=== PATIENT | female | born 1950 | race Caucasian/White ===

== ENCOUNTER → 2017-01-24 | Outpatient (CLI) | payer MEDICARE ==
--- NOTE | 2017-01-24 23:02 | MR ---
EXAMINATION TYPE: MR angio head wo con DATE OF EXAM: 01/24/2017 COMPARISON: 05/05/2013 HISTORY: 67-year-old female Follow up for cyst previous MRI on PACS TECHNIQUE: High-resolution 3-D [id number] images focusing on the [place] were performed without contrast. FINDINGS: The vertebral arteries are codominant. 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 Internal carotid arteries as well as the remainder of the anterior circulation appears patent. No sig nificant stenosis, arterial occlusion, or aneurysmal change is identified. There is slight medial displacement of the left M1 bifurcation secondary to the large arachnoid cyst in the anterior left middle cranial fossa. Patent bilateral posterior communicating arteries are note d. IMPRESSION: 1. No significant stenosis, arterial occlusion, or aneurysmal change seen. 2. 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 3. Arachnoid cyst lying in the anterior left middle cranial fossa.
--- NOTE | 2017-01-24 23:12 | MR ---
EXAMINATION TYPE: MR brain wo/w con DATE OF EXAM: 01/24/2017 COMPARISON: 04/30/2013 HISTORY: 67-year-old female with follow-up for arachnoid cyst TECHNIQUE: Multiplanar, multisequence images of the brain and brainstem were acquired before and aft er administration of 7.5 mL IV Gadavist. Diffusion weighted imaging is performed. FINDINGS: Redemonstrated cystic space with a CSF signal intensity along the anterior left middle cranial fossa measuring 2.5 cm wide by 4.6 cm AP by 5.6 cm craniocaudal. This is unchanged from prior exam. Again, this has mild mass effect onto the underlying insular lobe, mass effect onto the anterior hannah in of the left temporal lobe, and onto the inferior left frontal lobe. However, there is no midline s hift or herniation. No evidence for acute infarction, hemorrhage, effacement of basal cisterns, or extra-axial fluid amarilys ection. The ventricles and sulci are age-appropriate. Major intracranial flow voids are intact. T2/FLAIR weighted sequences show minimal scattered burden of bright white matter change in the subcor tical and deep white matter of both cerebral hemispheres numbering approximately 5 on each side. Midline structures demonstrate normal morphology. The craniocervical junction is normal. Post contrast images demonstrate no evidence of pathologic enhancement. Dural venous sinuses are pat ent. There is near complete opacification of the right sphenoid sinus with a moderate mucosal thickening a nd suggestion of an air-fluid level may be present within. Globes are intact. IMPRESSION: 1. No acute intracranial abnormality seen. 2. Stable large 5.6 cm arachnoid cyst in the anterior left middle cranial fossa. Mild mass effect ont o the adjacent brain parenchyma is unchanged. No midline shift or herniation. 3. Chronic T2 bright white matter changes with minimal overall burden. 4. Correlate for possible acute on chronic right sphenoid sinusitis.
== END | disposition home or self-care (01) ==
LOC: RADMRIMAIN 19:28
PROVIDERS: ATTEND Psychiatry & Neurology Neurology
DX: G93.0 Cerebral cysts (principal); R90.82 White matter disease, unspecified
CPT/HCPCS: 70544; 70553; A9581

== ENCOUNTER → 2018-02-19 | Outpatient (CLI) | payer MEDICARE, OTHER ==
--- NOTE | 2018-02-19 17:20 | XR ---
Thoracic spine HISTORY: Chronic mid back pain 3 views of the thoracic spine correlated to prior exam 07/14/2011 Slight spinal curvature is again noted. Thoracic vertebral bodies show stable height, alignment, and bone mineralization. No evident paraspinal mass. Disc spaces are mildly reduced in the midthoracic le gurdeep of the lower thoracic level. There is mild multilevel spondylosis. IMPRESSION: Essentially stable exam. Thoracic spondylosis, degenerative disc disease, MRI may be of b enefit
--- NOTE | 2018-02-19 17:21 | XR ---
Lumbar spine HISTORY: Chronic low back pain 3 views of the lumbar spine There is a levoscoliosis centered at L2. Multilevel spondylosis is present. There is loss of disc hei ght and intervertebral levels. Lumbar vertebral bodies show preserved height and alignment. Bone mine ralization is reduced. Vacuum phenomenon present at L5-S1. Sclerosis present in the posterior element s of the lower lumbar spine. Atherosclerotic change present in the aortoiliac distribution. IMPRESSION: Degenerative disc disease, facet arthropathy, scoliosis. Osteopenia.
--- NOTE | 2018-02-19 17:23 | XR ---
Cervical spine HISTORY: Chronic neck pain 5 views of the cervical spine There is multilevel facet arthropathy. Suspect some atherosclerotic change of the carotid artery dist ribution. There is no significant foraminal encroachment on oblique images on the right, on the left at C5-6 and C7-T1 there is some foraminal encroachment. Cervical vertebral bodies show preserved heig ht, alignment, bone mineralization. Loss of disc height present at C5-6, there is multilevel spondylo sis. Odontoid view is limited. Prevertebral soft tissues are normal. IMPRESSION: Degenerative disc disease, facet arthropathy. No foraminal encroachment as described. Cer vical MRI may be of benefit.
== END | disposition home or self-care (01) ==
LOC: RADXRMAIN 12:41
PROVIDERS: ATTEND Internal Medicine
DX: M51.35 Other intervertebral disc degeneration, thoracolumbar region (principal); M47.814 Spondylosis without myelopathy or radiculopathy, thoracic region; M46.86 Other specified inflammatory spondylopathies, lumbar region; M41.86 Other forms of scoliosis, lumbar region; M85.88 Other specified disorders of bone density and structure, other site; M50.30 Other cervical disc degeneration, unspecified cervical region; M46.82 Other specified inflammatory spondylopathies, cervical region
CPT/HCPCS: 72050; 72070; 72100

== ENCOUNTER 2018-04-20 22:22 | Emergency (ER) | payer MEDICARE, OTHER ==
[2018-04-20 22:30] VITALS: RESP 18
[2018-04-20 23:19] LABS: Basophils % (A) 0 %; Eosinophils # (A) 0.1 k/uL (0-0.7); Eosinophils % (A) 1 %; HCT 47.7 % (34.0-46.0); HGB 14.9 gm/dL (11.4-16.0); Lymphocytes # (A) 2.7 k/uL (1.0-4.8); Lymphocytes % (A) 27 %; MCH 28.4 pg (25.0-35.0); MCHC 31.3 g/dL (31.0-37.0); MCV 90.8 fL (80.0-100.0); Mean Platelet Volume 10.1; Monocytes # (A) 0.6 k/uL (0-1.0); Monocytes % (A) 6 %; Neutrophils # (A) 6.3 k/uL (1.3-7.7); Neutrophils % (A) 64 %; Platelet Count 188 k/uL (150-450); RBC 5.25 m/uL (3.80-5.40); RDW 13.1 % (11.5-15.5); WBC 9.8 k/uL (3.8-10.6)
[2018-04-20 23:28] LABS: ALT 23 U/L (9-52); AST 18 U/L (14-36); Albumin 3.6 g/dL (3.5-5.0); Alkaline Phosphatase 49 U/L (38-126); Anion Gap 5 mmol/L; Blood Urea Nitrogen 24 mg/dL (7-17); Calcium 9.1 mg/dL (8.4-10.2); Carbon Dioxide 28 mmol/L (22-30); Chloride 105 mmol/L (98-107); Glucose 116 mg/dL (74-99); Magnesium 2.1 mg/dL (1.6-2.3); Sodium 138 mmol/L (137-145); Total Bilirubin 0.5 mg/dL (0.2-1.3); Total Protein 6.1 g/dL (6.3-8.2)
--- NOTE | 2018-04-20 23:35 | XR ---
EXAMINATION TYPE: XR chest 2V DATE OF EXAM: 04/20/2018 COMPARISON: 07/25/2012 HISTORY: Chest pain TECHNIQUE: Frontal and lateral views of the chest are obtained. FINDINGS: Heart and mediastinum are normal. Lungs are clear. Diaphragm is normal. There are chest le ads. Bony thorax is intact. IMPRESSION: Normal chest. No change.
[2018-04-20 23:47] LABS: Creatine Kinase 25 U/L (30-135)
[2018-04-20 23:59] LABS: Creatine Kinase MB 0.4 ng/mL (0.0-2.4); Troponin I <0.012 ng/mL (0.000-0.034)
[2018-04-21 00:04] LABS: Prothrombin Time 10.5 sec (9.0-12.0)
[2018-04-21 00:12] LABS: Partial Thromboplastin Time 19.2 sec (22.0-30.0)
--- NOTE | 2018-04-21 01:17 | XR ---
EXAMINATION TYPE: XR foot complete RT DATE OF EXAM: 04/21/2018 COMPARISON: NONE HISTORY: Foot pain TECHNIQUE: 3 views FINDINGS: Metatarsals are intact. I see no fracture nor dislocation. There are no erosions. IMPRESSION: Negative right foot exam.
--- NOTE | 2018-04-21 01:47 | ED ---
Chest Pain HPI - General Chief Complaint: Chest Pain Stated Complaint: Palpitations Time Seen by Provider: 04/20/18 22:53 Source: patient Mode of arrival: ambulatory Limitations: no limitations - History of Present Illness Initial Comments: This patient is a 68-year-old woman who presents to be evaluated mainly for palpitations. She states that she has been feeling the occasional "flopping" in her heart as well, which is the chest pain referenced in the triage notes. She denies isis pain in the chest. She states that she was previously told she has PVCs, but she was experiencing a number of these and wanted to make sure nothing else was going on. She states the sensation lasts for just a couple of seconds. She has not had anginal symptoms, no dyspnea, diaphoresis, nausea or vomiting, syncope. When she has finished describing that she also describes having some pain located over the second metatarsal and was concerned that she may have injured her foot and does not recall that. She does not remember any specific trauma. MD Complaint: other Onset/Timin -: days(s) Onset: during rest Pain Location: substernal Pain Radiation: none Severity: mild Quality: other ("Flopping) Consistency: intermittent Improves With: nothing Worsens With: nothing Other Symptoms: palpitations Treatments Prior to Arrival: none - Related Data Home Medications Medication Instructions Recorded Confirmed Losartan [Cozaar] 50 mg PO DAILY 04/03/17 04/20/18 Pantoprazole Sodium [Protonix] 40 mg PO DAILY 04/03/17 04/20/18 Aspirin [Olivarez Aspirin EC] 81 mg PO DAILY 04/20/18 04/20/18 Citalopram Hydrobromide [CeleXA] 40 mg PO HS 04/20/18 04/20/18 Diclofenac Sodium [Voltaren] 25 mg PO BID 04/20/18 04/20/18 Famotidine [Pepcid] 40 mg PO HS 04/20/18 04/20/18 predniSONE [Deltasone] 20 mg PO DAILY 04/20/18 04/20/18 Allergies Allergy/AdvReac Type Severity Reaction Status Date / Time levofloxacin [From Levaquin] Allergy POSSIBLE Verified 04/20/18 23:08 RUPTURED TENDON LT ARM Review of Systems ROS Statement: Those systems with pertinent positive or pertinent negative responses have been documented in the HPI. ROS Other: All systems not noted in ROS Statement are negative. Constitutional: Denies: fever, chills, weakness Respiratory: Denies: cough, dyspnea Cardiovascular: Reports: as per HPI, palpitations. Denies: orthopnea, edema, syncope Gastrointestinal: Denies: abdominal pain, nausea, vomiting Genitourinary: Denies: dysuria Musculoskeletal: Denies: back pain Skin: Denies: rash Neurological: Denies: headache, weakness, numbness EKG Findings - EKG Comments: EKG Findings:: The underlying rhythm appears to be sinus with sinus arrhythmia the rate 70 bpm. Possible old inferior infarct - EKG Results: EKG: interpreted by MARCO ANTONIOD, sinus rhythm, normal axis, normal ST/T Past Medical History Past Medical History: GERD/Reflux, Hypertension Additional Past Medical History / Comment(s): Right venticular outflow tachycardia History of Any Multi-Drug Resistant Organisms: None Reported Past Surgical History: Adenoidectomy, Appendectomy, Section, Hysterectomy, Tonsillectomy, Tubal Ligation Additional Past Surgical History / Comment(s): LT ANKLE TENDON REPAIR. LT GANGLION CYST REMOVED X 2. SINUS SX X 2. COLONOSCOPY Past Anesthesia/Blood Transfusion Reactions: Postoperative Nausea & Vomiting ( PONV) Past Psychological History: Anxiety, Depression Smoking Status: Never smoker Past Alcohol Use History: None Reported Past Drug Use History: None Reported - Past Family History Mother Family Medical History: No Reported History General Exam Limitations: no limitations General appearance: alert, in no apparent distress Head exam: Present: atraumatic, normocephalic Eye exam: Present: normal appearance. Absent: scleral icterus, conjunctival injection ENT exam: Present: normal oropharynx Neck exam: Present: normal inspection Respiratory exam: Present: normal lung sounds bilaterally. Absent: respiratory distress, wheezes, rales, rhonchi, stridor Cardiovascular Exam: Present: regular rate, normal rhythm, normal heart sounds. Absent: systolic murmur, diastolic murmur, rubs, gallop GI/Abdominal exam: Present: soft. Absent: distended, tenderness, guarding, rebound, mass Extremities exam: Present: normal inspection, normal capillary refill. Absent: pedal edema, calf tenderness Back exam: Present: normal inspection. Absent: CVA tenderness (R), CVA tenderness (L) Neurological exam: Present: alert Skin exam: Present: warm, dry, intact, normal color. Absent: rash Course Vital Signs 04/20/18 04/21/18 22:26 02:20 Temperature 97.9 F 98.8 F Pulse Rate 79 72 Respiratory 18 18 Rate Blood Pressure 149/77 139/77 O2 Sat by Pulse 99 96 Oximetry Disposition Clinical Impression: Palpitations, Foot pain, right Disposition: HOME SELF-CARE Condition: Good Instructions: Heart Palpitations (DC) Is patient prescribed a controlled substance at d/c from ED?: No Referrals: Flynn Palomino MD [Primary Care Provider] - 1-2 days
[2018-04-21 02:22] VITALS: BP 139/77; PULSE 72; TEMP 98.8
== END 2018-04-21 02:31 | disposition home or self-care (01) ==
LOC: EC 22:22
DX: R00.2 Palpitations (principal); M79.671 Pain in right foot; R07.2 Precordial pain; K21.9 Gastro-esophageal reflux disease without esophagitis; I10 Essential (primary) hypertension; I47.2 Ventricular tachycardia; F41.9 Anxiety disorder, unspecified; F32.9 Major depressive disorder, single episode, unspecified; Z79.82 Long term (current) use of aspirin; Z79.1 Long term (current) use of non-steroidal anti-inflammatories (NSAID); Z79.52 Long term (current) use of systemic steroids; Z79.899 Other long term (current) drug therapy; Z88.1 Allergy status to other antibiotic agents
CPT/HCPCS: 36415; 71046; 80053; 82550; 82553; 83735; 83880; 84484; 85025; 85610; 85730; 99285

== ENCOUNTER → 2018-10-29 | Outpatient (CLI) | payer MEDICARE, OTHER ==
[2018-10-29 19:02] LABS: Magnesium 1.9 mg/dL (1.5-2.4)
== END | disposition home or self-care (01) ==
LOC: LABWHC1 12:31
PROVIDERS: ATTEND Psychiatry & Neurology Neurology
DX: G43.101 Migraine with aura, not intractable, with status migrainosus (principal); G93.0 Cerebral cysts; F32.9 Major depressive disorder, single episode, unspecified
CPT/HCPCS: 36415; 82306; 82310; 83735

== ENCOUNTER → 2020-01-01 | Outpatient (CLI) | payer MEDICARE, OTHER ==
[2020-01-01 21:19] LABS: Albumin 4.2 g/dL (3.80-4.90); Albumin/Globulin Ratio 2.63 (1.60-3.17); Bilirubin, Conjugated 0.2 mg/dL (0.20-0.40); Bilirubin,Unconjugated 0.6 mg/dL; Chol/HDL Ratio 2.82; Globulin 1.6 g/dL (1.6-3.3); Total Bilirubin 0.8 mg/dL (0.3-1.2); Total Protein 5.8 g/dL (6.2-8.2)
[2020-01-01 21:27] LABS: T4, Free (Free Thyroxine) 1.1 ng/dL (0.80-1.80)
== END | disposition home or self-care (01) ==
LOC: LABWHC1 10:27
PROVIDERS: ATTEND Internal Medicine
DX: E03.9 Hypothyroidism, unspecified (principal); R53.82 Chronic fatigue, unspecified; C78.5 Secondary malignant neoplasm of large intestine and rectum; E55.9 Vitamin D deficiency, unspecified
CPT/HCPCS: 36415; 80061; 80076; 82306; 84439; 84443; 84481

== ENCOUNTER 2020-01-18 16:37 | Emergency (ER) | payer MEDICARE, OTHER ==
--- NOTE | 2020-01-18 17:12 | ED ---
General Adult HPI - General Chief complaint: Dizziness Stated complaint: dizzy,nausea,head ache Time Seen by Provider: 01/18/20 16:57 Source: patient Mode of arrival: ambulatory Limitations: no limitations - History of Present Illness Initial comments: Patient presents the ED by private vehicle (patient states she drove here) complaining of feeling dizzy and nauseated ever since she hit her head (right rastafari) on a door frame 10 days ago. Patient states that her symptoms were improving until she had her neck manipulated by her chiropractor 4 days ago, and she states that her dizziness has been worse ever since then. Patient states that her dizziness is worse when turning her head from side to side. Patient also admits to having a right-sided headache, as well as mild right posterolateral neck pain. Patient denies LOC at the time of her head injury. Patient denies fever or chills, focal numbness/weakness/neuro deficit, visual changes, speech difficulty, back pain, extremity pain, chest pain, dyspnea, cough or cold symptoms, palpitations, syncope, abdominal pain, nausea/vomiting/diarrhea, bloody or melanotic stool, dysuria or urinary symptoms, or any other symptoms or complaints. - Related Data Home Medications Medication Instructions Recorded Confirmed Losartan [Cozaar] 50 mg PO DAILY 04/03/17 04/20/18 Pantoprazole Sodium [Protonix] 40 mg PO DAILY 04/03/17 04/20/18 Aspirin [Gaines Aspirin EC] 81 mg PO DAILY 04/20/18 04/20/18 Citalopram Hydrobromide [CeleXA] 40 mg PO HS 04/20/18 04/20/18 Diclofenac Sodium [Voltaren] 25 mg PO BID 04/20/18 04/20/18 Famotidine [Pepcid] 40 mg PO HS 04/20/18 04/20/18 predniSONE [Deltasone] 20 mg PO DAILY 04/20/18 04/20/18 Previous Rx's Medication Instructions Recorded Meclizine [Antivert] 25 mg PO TID PRN #12 tab 01/18/20 Ondansetron Odt [Zofran Odt] 4 mg PO Q8HR PRN #10 tab 01/18/20 Allergies Allergy/AdvReac Type Severity Reaction Status Date / Time levofloxacin [From Levaquin] Allergy POSSIBLE Verified 01/18/20 16:43 RUPTURED TENDON LT ARM Review of Systems ROS Statement: Those systems with pertinent positive or pertinent negative responses have been documented in the HPI. ROS Other: All systems not noted in ROS Statement are negative. Past Medical History Past Medical History: GERD/Reflux, Hypertension Additional Past Medical History / Comment(s): Right venticular outflow tachycardia, arachnoid cyst on temporal lobe, History of Any Multi-Drug Resistant Organisms: None Reported Past Surgical History: Adenoidectomy, Appendectomy, Section, Hy sterectomy, Tonsillectomy, Tubal Ligation Additional Past Surgical History / Comment(s): LT ANKLE TENDON REPAIR. LT GANGLION CYST REMOVED X 2. SINUS SX X 2. COLONOSCOPY Past Anesthesia/Blood Transfusion Reactions: Postoperative Nausea & Vomiting ( PONV) Past Psychological History: Anxiety, Depression Smoking Status: Never smoker Past Alcohol Use History: None Reported Past Drug Use History: None Reported - Past Family History Mother Family Medical History: No Reported History General Exam Limitations: no limitations General appearance: alert, in no apparent distress Head exam: Present: atraumatic, normocephalic Eye exam: Present: normal appearance, PERRL, EOMI ENT exam: Present: normal oropharynx, mucous membranes moist, TM's normal bilaterally Neck exam: Present: normal inspection, other (Trachea is in midline). Absent: tenderness Respiratory exam: Present: normal lung sounds bilaterally. Absent: respiratory distress, wheezes, rales, rhonchi Cardiovascular Exam: Present: regular rate, normal rhythm, normal heart sounds, other (Normal radial pulses bilaterally) GI/Abdominal exam: Present: soft. Absent: distended, tenderness, guarding Extremities exam: Present: full ROM. Absent: tenderness, pedal edema, calf tenderness Neurological exam: Present: alert, oriented X3, CN II-XII intact. Absent: motor sensory deficit Psychiatric exam: Present: normal affect, normal mood Skin exam: Present: warm, dry, intact, normal color Course Vital Signs 01/18/20 01/18/20 01/18/20 16:39 17:37 18:44 Temperature 98.3 F Pulse Rate 78 77 77 Respiratory 18 16 16 Rate Blood Pressure 153/77 136/78 130/67 O2 Sat by Pulse 95 100 98 Oximetry - Reevaluation(s) Reevaluation #1: 01/18/20 19:07 Patient remains alert and breathing comfortably with a normal room air oxygen saturation. Patient continues to have a normal neurological exam. Patient states that her dizziness and nausea have improved with ED treatment. Patient denies development of any new symptoms while in the ED. Patient is aware of her test results, and she feels comfortable going home at this time. Patient was counseled about head injuries and dizziness/vertigo. Patient was clearly explained return and follow-up instructions. Patient was instructed to follow up closely with her primary care provider. Patient feels comfortable with this plan. EKG Findings - EKG Comments: EKG Findings:: Normal sinus rhythm, ventricular rate of 70 bpm, normal OR and QRS intervals, normal QT interval, normal axis, no ST or T-wave abnormality Medical Decision Making - Medical Decision Making Patient's EKG, labs and imaging studies are all fairly unremarkable. Patient has no evidence of intracranial injury or cervical vascular dissection. I suspect that the patient's symptoms are likely secondary to head injury and/or peripheral vertigo. Patient's symptoms improved in the ED with Zofran and meclizine. Will discharge patient home with prescriptions for both. - Lab Data Result diagrams: 01/18/20 17:31 01/18/20 17:31 Lab Results 01/18/20 01/18/20 01/18/20 Range/Units 17:31 17:31 17:31 WBC 5.8 (3.8-10.6) k/uL RBC 4.94 (3.80-5.40) m/uL Hgb 15.4 (11.4-16.0) gm/dL Hct 44.8 (34.0-46.0) % MCV 90.8 (80.0-100.0) fL MCH 31.2 (25.0-35.0) pg MCHC 34.4 (31.0-37.0) g/dL RDW 12.3 (11.5-15.5) % Plt Count 148 L (150-450) k/uL Neutrophils % 56 % Lymphocytes % 34 % Monocytes % 6 % Eosinophils % 2 % Basophils % 1 % Neutrophils # 3.3 (1.3-7.7) k/uL Lymphocytes # 2.0 (1.0-4.8) k/uL Monocytes # 0.3 (0-1.0) k/uL Eosinophils # 0.1 (0-0.7) k/uL Basophils # 0.1 (0-0.2) k/uL PT 9.9 (9.0-12.0) sec INR 1.0 (<1.2) APTT 23.2 (22.0-30.0) sec Sodium 139 (137-145) mmol/L Potassium 4.4 (3.5-5.1) mmol/L Chloride 107 (98-107) mmol/L Carbon Dioxide 26 (22-30) mmol/L Anion Gap 6 mmol/L BUN 21 H (7-17) mg/dL Creatinine 0.90 (0.52-1.04) mg/dL Est GFR (CKD-EPI)AfAm 76 (>60 ml/min/1.73 sqM) Est GFR (CKD-EPI)NonAf 66 (>60 ml/min/1.73 sqM) Glucose 113 H (74-99) mg/dL Calcium 9.3 (8.4-10.2) mg/dL Total Bilirubin 0.4 (0.2-1.3) mg/dL AST 27 (14-36) U/L ALT 19 (4-34) U/L Alkaline Phosphatase 63 (38-126) U/L Troponin I (0.000-0.034) ng/mL Total Protein 6.4 (6.3-8.2) g/dL Albumin 4.1 (3.5-5.0) g/dL 01/18/20 Range/Units 17:31 WBC (3.8-10.6) k/uL RBC (3.80-5.40) m/uL Hgb (11.4-16.0) gm/dL Hct (34.0-46.0) % MCV (80.0-100.0) fL MCH (25.0-35.0) pg MCHC (31.0-37.0) g/dL RDW (11.5-15.5) % Plt Count (150-450) k/uL Neutrophils % % Lymphocytes % % Monocytes % % Eosinophils % % Basophils % % Neutrophils # (1.3-7.7) k/uL Lymphocytes # (1.0-4.8) k/uL Monocytes # (0-1.0) k/uL Eosinophils # (0-0.7) k/uL Basophils # (0-0.2) k/uL PT (9.0-12.0) sec INR (<1.2) APTT (22.0-30.0) sec Sodium (137-145) mmol/L Potassium (3.5-5.1) mmol/L Chloride (98-107) mmol/L Carbon Dioxide (22-30) mmol/L Anion Gap mmol/L BUN (7-17) mg/dL Creatinine (0.52-1.04) mg/dL Est GFR (CKD-EPI)AfAm (>60 ml/min/1.73 sqM) Est GFR (CKD-EPI)NonAf (>60 ml/min/1.73 sqM) Glucose (74-99) mg/dL Calcium (8.4-10.2) mg/dL Total Bilirubin (0.2-1.3) mg/dL AST (14-36) U/L ALT (4-34) U/L Alkaline Phosphatase (38-126) U/L Troponin I <0.012 (0.000-0.034) ng/mL Total Protein (6.3-8.2) g/dL Albumin (3.5-5.0) g/dL - Radiology Data Radiology results: report reviewed (Noncontrast CT head shows no acute intracranial abnormality; CT angiogram neck with IV contrast shows no evidence of stenosis or dissection) Disposition Clinical Impression: Head injury, Dizziness Disposition: HOME SELF-CARE Condition: Stable Instructions (If sedation given, give patient instructions): Vertigo (ED), Head Injury (ED), Dizziness (ED) Additional Instructions: Return to the ER immediately should you develop new or worsening pain, increased dizziness, numbness or weakness, a fever, shortness of breath, passing out, or new or worsening symptoms. Follow up closely with your primary care provider. Prescriptions: Meclizine [Antivert] 25 mg PO TID PRN #12 tab PRN Reason: Vertigo Ondansetron Odt [Zofran Odt] 4 mg PO Q8HR PRN #10 tab PRN Reason: Nausea Is patient prescribed a controlled substance at d/c from ED?: No Referrals: Flynn Palomino MD [Primary Care Provider] - 1-2 days Time of Disposition: 19:11
[2020-01-18] MEDS ORDERED: MECLIZINE 12.5 MG TAB PO STA (17:25)
[2020-01-18] MEDS ORDERED: ONDANSETRON 4 MG/2 ML VIAL IVP STA (17:25)
[2020-01-18] MEDS ORDERED: SODIUM CHLORIDE 0.9% 500 ML 500 ML IV STA (17:25)
[2020-01-18 17:53] LABS: Basophils # (A) 0.1 k/uL (0-0.2); Basophils % (A) 1 %; Eosinophils # (A) 0.1 k/uL (0-0.7); Eosinophils % (A) 2 %; HCT 44.8 % (34.0-46.0); HGB 15.4 gm/dL (11.4-16.0); Lymphocytes % (A) 34 %; MCH 31.2 pg (25.0-35.0); MCHC 34.4 g/dL (31.0-37.0); MCV 90.8 fL (80.0-100.0); Mean Platelet Volume 11.1; Monocytes # (A) 0.3 k/uL (0-1.0); Monocytes % (A) 6 %; Neutrophils # (A) 3.3 k/uL (1.3-7.7); Neutrophils % (A) 56 %; Platelet Count 148 k/uL (150-450); RBC 4.94 m/uL (3.80-5.40); RDW 12.3 % (11.5-15.5); WBC 5.8 k/uL (3.8-10.6)
[2020-01-18 17:55] LABS: Albumin 4.1 g/dL (3.5-5.0); Calcium 9.3 mg/dL (8.4-10.2); Potassium 4.4 mmol/L (3.5-5.1); Total Bilirubin 0.4 mg/dL (0.2-1.3); Total Protein 6.4 g/dL (6.3-8.2)
--- NOTE | 2020-01-18 18:11 | XR ---
EXAMINATION TYPE: XR chest 1V portable DATE OF EXAM: 01/18/2020 COMPARISON: 04/20/2018 HISTORY: Chest tightness dizziness TECHNIQUE: FINDINGS: Heart and mediastinum are normal. Lungs are clear. Diaphragm is normal. Bony thorax appears normal. IMPRESSION: Normal chest. No change.
[2020-01-18 18:13] LABS: Partial Thromboplastin Time 23.2 sec (22.0-30.0); Prothrombin Time 9.9 sec (9.0-12.0)
--- NOTE | 2020-01-18 18:56 | CT ---
EXAMINATION TYPE: CT brain wo con DATE OF EXAM: 01/18/2020 COMPARISON: 07/25/2012 HISTORY: headache and dizziness following chiropractic adjustment. CT DLP: 1131.6 mGycm Automated exposure control for dose reduction was used. There is enlargement of the left sylvian fissure. There is no mass effect nor midline shift. There is no sign of intracranial hemorrhage. Ventricles have normal size. The calvarium is intact. 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 No acute intracranial abnormality.
--- NOTE | 2020-01-18 19:02 | CT ---
EXAMINATION TYPE: CT angio neck DATE OF EXAM: 01/18/2020 COMPARISON: HISTORY: headache and dizziness following chiropractic adjustment. CT DLP: 348.5 mGycm Automated exposure control for dose reduction was used. CONTRAST: Performed with IV Contrast, patient injected with 65cc mL of Isovue 370. There is arterial flow in the common internal and external carotid arteries bilaterally. There is ant egrade flow in the vertebral arteries. There is minimal calcification at the right carotid artery bif urcation. I see no evidence of carotid artery stenosis. There is no evidence of carotid or vertebral artery aneurysm or dissection. There is normal branching pattern of the great vessels on the aortic a rch. There is arterial flow in both subclavian arteries. Cervical vertebra have normal alignment. Posterior elements are intact. Prevertebral soft tissues are intact. IMPRESSION: Negative CT angiogram of the neck. No evidence of stenosis or dissection.
[2020-01-18 19:23] VITALS: BP 146/76; PULSE 70; RESP 19; TEMP 98.1
== END 2020-01-18 19:22 | disposition home or self-care (01) ==
LOC: EC 16:37
DX: S09.90XA Unspecified injury of head, initial encounter (principal); R42 Dizziness and giddiness; I10 Essential (primary) hypertension; K21.9 Gastro-esophageal reflux disease without esophagitis; F41.9 Anxiety disorder, unspecified; F32.9 Major depressive disorder, single episode, unspecified; Z79.899 Other long term (current) drug therapy; Z79.82 Long term (current) use of aspirin; Z79.1 Long term (current) use of non-steroidal anti-inflammatories (NSAID); Z79.51 Long term (current) use of inhaled steroids; Z88.1 Allergy status to other antibiotic agents; W22.8XXA Striking against or struck by other objects, initial encounter
CPT/HCPCS: 99284 ×2; 96374 ×2; 36415; 93005; 80053; 84484; 85025; 85610; 85730; 71045; 70450; 70498; J2405; Q9967

== ENCOUNTER → 2020-11-15 | Outpatient (CLI) | payer MEDICARE, OTHER ==
[2020-11-15 08:52] VITALS: BP 152/90; PULSE 67; RESP 18; TEMP 98.2
--- NOTE | 2020-11-15 08:56 | P.PAINCN ---
History of Present Illness - Reason for Consult Consult date: 11/15/20 - History of Present Illness This is a 70-year-old patient who has been seeing Dr Cary since 2019 and has been getting RFA's from him at bilateral L4-5 and L5-S1, last was September 2019. Dr Hawk referred her to us. She had a caudal epidural injection on 11/02 and is having persistent pain. Pain is located in the left buttock and lateral thigh and also on the right side with a burning sensation. She also reports some muscle spasms. Pain is worse with prolonged walking and is worse at night and can wake her up at night. 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 As mentioned in the past she had received frequency ablations which gave her greater than 80% relief. She also had 2 caudal epidural steroid injections in the past, the most recent one with left lower extremity pain but not so much on the right side.In terms of Management she is on multiple conservative therapies including physical therapy, [place] home exercise program, as well as sees a chiropractor. Also notes some midthoracic back pain that she has had for some time. She noted that she had an x-ray of this in the past but was told there wasn't any pathology. Pain is in mid back with some radiation into the anterior chest wall described as sharp and stabbing as well. has not had any management or injections for this area of pain. Patient denies adverse drug effects from medications. Patient also denies new- onset weakness, bowel/bladder incontinence, or any other signs or symptoms of cauda equina syndrome. There are no signs of acute intoxication, and no indications of medication diversion or overuse. In addition to above, 13-point review of systems is also negative for chest pain, shortness of breath, changes in vision, changes in hearing, new onset weakness, abdominal pain, diarrhea, extreme fatigue, malaise, fever, skin changes, homicidal or suicidal ideation, or bowel or bladder incontinence. Physical exam: Vital Signs: Reviewed in EMR GENERAL: Well appearing, in no acute distress PSYCH: Mood and affect is appropriate. Awake, alert, and oriented SKIN: Skin color, texture, turgor normal, no rashes or lesions HEENT: Normocephalic, atraumatic. EOM intact CV: No pedal edema RESP: Respirations are unlabored, no audible wheezing GI: Abdomen non-distended MUSCULOSKELETAL: Bilateral upper and lower extremity strength is normal and symmetric. No atrophy or tone abnormalities are noted. Lumbar spine: Straight leg raising in the sitting position is negative for radicular pain. pain to palpation over the lumbar spine and paraspinous muscles. positive for pain with facet loading and back extension/rotation. Decreased flexion due to pain Buttocks: pain to palpation over the PSIS, Corey test is positive on the right side Extremities: Peripheral joint ROM is full and pain free without obvious instability or laxity in all four extremities. No edema or skin discolorations noted. Gait: Gait is normal NEUR: Bilateral upper and lower extremity coordination and muscle stretch reflexes are physiologic and symmetric. Negative clonus. No loss of sensation is noted. Cranial nerves are grossly intact. Imaging: MRI 08/2019 There is significant facet arthropathy noted at the L4-L5 level with moderate narrowing of the thecal sac and moderate right and mild to moderate left foraminal stenosis. At L5-S1 there is a broad-based degenerative disc protrusion extending in the neural foramen with moderate posterior facet arthropathy is also bilateral lateral recess stenosis with [id number] spinal canal stenosis, and moderate to severe bilateral foraminal stenosis. Assessment: 1. Lumbar spondylosis without myelopathy 2. Sacroilitis Plan: 1. Explanation: Diagnoses, prognoses, and multiple treatment options including but not limited to physical therapy, interventional therapies, medication management and surgery were discussed with the patient and all questions were answered to the patient's satisfaction. 2. Investigations: Considerthoracic MRI in the future 3. Counseling: The patient was counseled for 3 minutes on SBODY MASS INDEX, EXERCISE. Specifically, the patient was instructed regarding the importance of weight control, and exercise in the context of both chronic pain and overall health. 4. Procedures: Bilateral L4-5 and L5-S1 RFA. If patient has persistent pain she may benefit from SIJ injection in the future as well. 5. Consultations: none 6. Medications: none 7. Disposition: for above procedure I spent 50 minutes on patient care today. The time was used to review medical records including relevant urine studies and prescription history (MAPs), review of the available imaging, evaluation and examination the patient, coordination of care at the medical staff and if applicable referring physicians, as well as creation of the medical record. Past Medical History Past Medical History: GERD/Reflux, Hypertension, Musculoskeletal Disorder, Thyroid Disorder Additional Past Medical History / Comment(s): hx. PVC's, doens't need to take BP med anymore, arachnoid cyst on temporal lobe-neuro monitors, saw PCP today, some mild GE symptoms-has zofran for prn, PCP didn't think was covid related History of Any Multi-Drug Resistant Organisms: None Reported Past Surgical History: Adenoidectomy, Appendectomy, Section, Hysterectomy, Tonsillectomy, Tubal Ligation Additional Past Surgical History / Comment(s): LT ANKLE TENDON REPAIR. LT HAND GANGLION CYST REMOVED X 2. SINUS SX X 2. COLONOSCOPY, epidural pain procedures-most recent 11-02-20 Past Anesthesia/Blood Transfusion Reactions: Postoperative Nausea & Vomiting (PONV) Smoking Status: Never smoker - Past Family History Mother Family Medical History: No Reported History Medications and Allergies Home Medications Medication Instructions Recorded Confirmed Type Pantoprazole Sodium [Protonix] 40 mg PO DAILY 04/03/17 11/09/20 History Aspirin [[place] Aspirin EC] 81 mg PO DAILY 04/20/18 11/09/20 History Ondansetron Odt [Zofran Odt] 4 mg PO Q8HR PRN #10 tab 01/18/20 11/09/20 Rx Dicyclomine [Bentyl] 10 mg PO TID PRN 11/09/20 11/09/20 History Escitalopram [Lexapro] 20 mg PO DAILY 11/09/20 11/09/20 History Levothyroxine Sodium [Synthroid] 25 mcg PO DAILY 11/09/20 11/09/20 History Meloxicam [Mobic] 7.5 mg PO BID PRN 11/09/20 11/09/20 History Allergies Allergy/AdvReac Type Severity Reaction Status Date / Time adhesive tape AdvReac skin Verified 11/09/20 11:19 blisters if left on too long levofloxacin [From Levaquin] AdvReac POSSIBLE Verified 11/09/20 11:19 RUPTURED TENDON LT ARM PQRS Measure Charge Sheet PQRS Narrative: Smoking Status Never smoker Pain Intensity [Lower Back] 3 Scale Used Numeric (1 - 10) Hx Alcohol Use (MH) No Home Medications: Ambulatory Orders Pantoprazole Sodium [Protonix] 40 mg PO DAILY 04/03/17 Aspirin [[place] Aspirin EC] 81 mg PO DAILY 04/20/18 Ondansetron Odt [Zofran Odt] 4 mg PO Q8HR PRN #10 tab 01/18/20 Dicyclomine [Bentyl] 10 mg PO TID PRN 11/09/20 Escitalopram [Lexapro] 20 mg PO DAILY 11/09/20 Levothyroxine Sodium [Synthroid] 25 mcg PO DAILY 11/09/20 Meloxicam [Mobic] 7.5 mg PO BID PRN 11/09/20
== END ==
LOC: PNWHC3 08:00
PROVIDERS: ATTEND Anesthesiology
DX: M47.816 Spondylosis without myelopathy or radiculopathy, lumbar region (principal); M46.1 Sacroiliitis, not elsewhere classified; I10 Essential (primary) hypertension; K21.9 Gastro-esophageal reflux disease without esophagitis; Z88.1 Allergy status to other antibiotic agents; Z91.048 Other nonmedicinal substance allergy status
CPT/HCPCS: 99211

== ENCOUNTER 2020-12-24 06:57 | Day surgery (SDC) | payer MEDICARE, OTHER ==
[2020-12-22 10:10] VITALS: BMI 30.2
[~2020-12-24 06:57] MED LIST: LACTATED RINGERS 1,000 ML IV SCH
[2020-12-24 07:21] VITALS: TEMP 97.7
[2020-12-24] MEDS ORDERED: fentaNYL (PF) 50 MCG/ML 2 ML AMP ONE (07:52)
[2020-12-24] MEDS ORDERED: ROPIVACAINE 5MG/ML 20ML VIAL ONE (07:52)
[2020-12-24] MEDS ORDERED: methylPREDNISolone ACETATE 40 MG/ML 1 ML VIAL ONE (07:52)
[2020-12-24] MEDS ORDERED: MIDAZOLAM 2 MG/2 ML VIAL ONE (07:52)
--- NOTE | 2020-12-24 08:19 | P.PCN ---
Date of Procedure: 12/24/20 Procedure(s) Performed: PREOPERATIVE DIAGNOSIS: 1-Lumbar Spondylosis with Facet Arthropathy without myelopathy. 2-Sacroiliitis. POSTOPERATIVE DIAGNOSIS: 1- Lumbar Spondylosis with Facet Arthropathy without myelopathy. 2- Sacroilitis. PROCEDURES : Bilateral Radiofrequency thermocoagulation, L3 , L4 , and L5 medial branch, with fluoroscopic guidance (fluoroscopy images available in the radiology department) ( to denervate the facet joint at Bilateral L4-5 ,and L5-S1 levels ). ANESTHESIA: monitered anesthesia care, as per anesthesia department . EBL: Minimal PROCEDURE INDICATION: The patient with low back pain secondary to lumbar facet arthropathy who had more than 50% relief of her pain with previous diagnostic lumbar medial branch block with bupivacaine. PROCEDURE DESCRIPTION / TECHNIQUE: The patient was seen and identified in the preoperative area. Risks, benefits, complications, including but not limited to risk of infection ,bleeding , allergic reactions to the medications and no complete pain releife , and alternatives were discussed with the patient, the patient agreed to proceed with the procedure and signed the consent. IV was started. Vital signs remained stable throughout the procedure. Patient was taken to the OR and time out was completed. The patient was placed in the prone position on the procedure table. The lumber area was prepped and draped in the usual sterile fashion. . Vital signs were closely monitored during the procedure .IV sedation was used during the procedure to decrease patients anxiety. Using AP and then oblique fluoroscopy, the ``eye of the Bernardo dog corresponding to the connection between the superior and transverse articular processes of right L3, L4, and L5 were identified, marked, and localized with 1% lidocaine. Subsequently, a 18 -nd radiofrequency cannula with a 10- mm active tip was advanced guided by fluoroscopy to each of the``eyes of the Bernardo dog at right L3, L4, and L5. Each site then underwent sensory testing at 50 Hz and 0 to 1 volt and motor testing at 2.5 Hz and 0 to 3 volt with local stimulation, but no radicular symptoms down the legs. Thereafter each sites underwent radiofrequency thermocoagulation at 80 degrees celsius for 90 seconds after injecting 0.5 ml of PF Ropivacaine 1ml, then after the thermocoagulation done , 1 ml of the block solution containing Depo-Medrol 20 mg and 3 ml of Ropivacaine 0.5% was injected at the right L3 , L4 , and L5 , levels after negative aspiration of CSF and blood and with no paresthesias. Cannulas were retracted while injecting lidocaine 1% until the needle is out. The same procedure was repeated at the level of Left L3, L4, and L5 levels. At the end of the procedure, the skin was cleansed and bandages were applied. COMPLICATIONS: No acute complications. DISPOSITION / PLANS: The patient was placed in a supine position and transferred to the recovery area in a stable condition for observation and was discharged from the recovery room after meeting discharge criteria. Home discharge instructions given to the patient by the staff. The patient was reexamined prior to discharge. The patient will schedule a follow up in the clinic in 2-4 weeks.
[2020-12-24] MEDS ORDERED: IV FLUID CONTINUATION 1,000 ML IV ONE (08:21)
[2020-12-24 08:39] VITALS: RESP 16
--- NOTE | 2020-12-24 08:47 | FL ---
Fluoroscopy HISTORY: Pain 11 seconds fluoroscopy time supplied to the referring clinician. 6 intraoperative C-arm images docum ent the procedure. See dictated report from anesthesia.
[2020-12-24 08:58] VITALS: BP 148/87; PULSE 80
== END 2020-12-24 09:08 | disposition home or self-care (01) ==
LOC: ORPAIN 06:57
PROVIDERS: ATTEND Specialist
DX: M47.816 Spondylosis without myelopathy or radiculopathy, lumbar region (principal); M46.1 Sacroiliitis, not elsewhere classified
CPT/HCPCS: 64635; 64636; J2250; J1030; J3010; J2795

== ENCOUNTER → 2021-01-24 | Outpatient (CLI) | payer MEDICARE, OTHER ==
[2021-01-24 09:52] VITALS: BP 135/71; PULSE 84; RESP 18; TEMP 98.6
--- NOTE | 2021-01-24 10:24 | P.PN ---
Subjective Progress Note Date: 01/24/21 This is a follow-up visit for this 71 years old female with a chronic history of severe low back pain, she is diagnosed with lumbar spinal stenosis, lumbar degenerative disc disease, and lumbar spondylosis with lumbar facet arthropathy without myelopathy, sacroiliitis, Last month we have done RFA of the medial branch lumbar area, she reported that her low back pain improved significantly she continued to have some buttock pain bilaterally, she is increased with changing position, she denies any motor or sensory deficit she denies any numbness or tingling sensation, no change in bowel movement or urination, she continued to use Mobic 7.5 mg twice a day when necessary and she already done physical therapy and she continues to do home exercise Objective - Vital Signs Vital signs: Vital Signs Temp 98.6 F 01/24/21 09:45 Pulse 84 01/24/21 09:45 Resp 18 01/24/21 09:45 BP 135/71 01/24/21 09:45 Pulse Ox 97 01/24/21 09:45 - Exam Physical Examinations : -Constitutiona : Cooperative , not in acute distress . -HEENT : nech : supple , no Lymphadenopathy , normal thyroid size . : eyes : no ptosis , no icterus, no photophobia . - neurologic : Cranial nerve II to XII intact , no focal neurological deffecit . -psychatric : alert , oriented X 3 , appropriate affect , intact judgment and insight . -Lymphatic : no Lymphadenopathy . - musculoskeltal : Lumber spine moter stegnth lower extremities ,thigh and legs 5/5 Right side , 5/5 Left side deep tendon reflexes : normal Knee Jerk , normal ankle Jerk lumber facet Loading Test = negative bilaterally Range of motion of the lumbar spine Flexion 30 degrees, extension 10 degrees strait leg raising test = positive at 30 degree Right side Fabere test= positive Right , tenderness over the Sacroiliac joint on the Right , and Left sides Head joints for range of motion bilaterally no restriction no pain with hip movement MRI of the lumbar spine= lumbar spinal stenosis lumbar foraminal stenosis lumbar degenerative disc disease and lumbar facet arthropathy Assessment and Plan Plan: Assessment and plan=1-lumbar spinal stenosis. 2-Lumbar degenerative disc disease. 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 Low back pain and improved after RFA medial b ranch lumbar area. Currently patient complaining of severe bilateral buttock pain, she will be good candidate to have lumbar epidural steroid injection at L5-S1 Time with Patient: Less than 30
== END ==
LOC: PNWHC3 09:37
PROVIDERS: ATTEND Specialist
DX: M48.061 Spinal stenosis, lumbar region without neurogenic claudication (principal); M51.36 Other intervertebral disc degeneration, lumbar region; M47.816 Spondylosis without myelopathy or radiculopathy, lumbar region; Z98.890 Other specified postprocedural states; Z91.09 Other allergy status, other than to drugs and biological substances; Z91.048 Other nonmedicinal substance allergy status; Z88.1 Allergy status to other antibiotic agents
CPT/HCPCS: 99211

== ENCOUNTER 2021-02-04 09:47 | Emergency (ER) | payer MEDICARE, OTHER ==
[2021-02-04 10:05] VITALS: BP 158/82; PULSE 91; RESP 18; TEMP 98
[2021-02-04] MEDS ORDERED: KETOROLAC 15 MG/ML 1 ML VIAL IVP STA (10:25)
[2021-02-04] MEDS ORDERED: SODIUM CHLORIDE 0.9% 1,000 ML IV STA (10:25)
[2021-02-04 11:02] LABS: Basophils % (A) 0 %; Eosinophils # (A) 0.1 k/uL (0-0.7); Eosinophils % (A) 1 %; HGB 15.1 gm/dL (11.4-16.0); Lymphocytes # (A) 1.5 k/uL (1.0-4.8); Lymphocytes % (A) 17 %; MCH 29.6 pg (25.0-35.0); MCHC 32.9 g/dL (31.0-37.0); MCV 90.1 fL (80.0-100.0); Mean Platelet Volume 11.4; Monocytes # (A) 0.5 k/uL (0-1.0); Monocytes % (A) 5 %; Neutrophils # (A) 6.7 k/uL (1.3-7.7); Neutrophils % (A) 75 %; Platelet Count 150 k/uL (150-450); RDW 12.4 % (11.5-15.5); WBC 8.9 k/uL (3.8-10.6)
--- NOTE | 2021-02-04 11:15 | ED ---
Abdominal Pain HPI - General Chief Complaint: Abdominal Pain Stated Complaint: abd pain Time Seen by Provider: 02/04/21 10:06 Source: patient, RN notes reviewed Mode of arrival: ambulatory Limitations: no limitations - History of Present Illness Initial Comments: 71-year-old female presents emergency Department chief complaint left-sided abdominal pain. Patient states started yesterday afternoon. Patient has left lower quadrant pain she does have history of diverticulosis, no history of diverticulitis. Patient has no nausea no vomiting no severe diarrhea constipation. Patient states she had no prior bowel infections denies dysuria currently but did have some symptoms a few days ago. Patient had hysterectomy, section, appendectomy. No reported fever - Related Data Home Medications Medication Instructions Recorded Confirmed Pantoprazole Sodium [Protonix] 40 mg PO DAILY 04/03/17 02/04/21 Aspirin [[place] Aspirin EC] 81 mg PO DAILY 04/20/18 02/04/21 Escitalopram [Lexapro] 20 mg PO HS 11/09/20 02/04/21 Meloxicam [Mobic] 7.5 mg PO DAILY 11/09/20 02/04/21 Multivitamins, Thera [Multivitamin 1 tab PO DAILY 12/22/20 02/04/21 (formulary)] Econazole 1% Cream [Spectazole] 1 applic TOPICAL DAILY PRN 02/04/21 02/04/21 Estrogens, Conjugated Cream 1 applicator VAGINAL DIRECTED 02/04/21 02/04/21 [Premarin Vaginal Cream] Fexofenadine HCl 180 mg PO DAILY PRN 02/04/21 02/04/21 Previous Rx's Medication Instructions Recorded Amoxicillin/Potassium Clav 1 tab PO Q12HR #20 tab 02/04/21 [Augmentin 875-125 Tablet] Allergies Allergy/AdvReac Type Severity Reaction Status Date / Time nickel Allergy Rash/Hives Verified 02/04/21 11:16 adhesive tape AdvReac skin Verified 02/04/21 11:16 blisters if left on too long levofloxacin [From Levaquin] AdvReac POSSIBLE Verified 02/04/21 11:16 RUPTURED TENDON LT ARM Review of Systems ROS Statement: Those systems with pertinent positive or pertinent negative responses have been documented in the HPI. ROS Other: All systems not noted in ROS Statement are negative. Past Medical History Past Medical History: GERD/Reflux, Hypertension, Musculoskeletal Disorder Additional Past Medical History / Comment(s): Hx PVC's; No Rx for HTN now, arachnoid cyst on temporal lobe-neuro Dr Powell monitors. Has chronic sinusitis, gets sores in nose - using po AB Rx currently. Chronic lower back pain, c/o bilat buttock/hip pain. History of Any Multi-Drug Resistant Organisms: None Reported Past Surgical History: Adenoidectomy, Appendectomy, Section, Hysterectomy, Tonsillectomy, Tubal Ligation Additional Past Surgical History / Comment(s): LT ANKLE TENDON REPAIR. LT HAND GANGLION CYST REMOVED X 2. SINUS SX X 2. COLONOSCOPY, epidural/Pain procedures Past Anesthesia/Blood Transfusion Reactions: Postoperative Nausea & Vomiting (PONV) Past Psychological History: Anxiety, Depression Smoking Status: Never smoker - Past Family History Mother Family Medical History: No Reported History General Exam Limitations: no limitations General appearance: alert, in no apparent distress Head exam: Present: atraumatic, normocephalic, normal inspection Respiratory exam: Present: normal lung sounds bilaterally. Absent: respiratory distress, wheezes, rales, rhonchi, stridor Cardiovascular Exam: Present: regular rate, normal rhythm, normal heart sounds. Absent: systolic murmur, diastolic murmur, rubs, gallop, clicks GI/Abdominal exam: Present: soft, tenderness (left lower quadrant), normal bowel sounds. Absent: distended, guarding, rebound, rigid Back exam: Absent: CVA tenderness (R), CVA tenderness (L) Neurological exam: Present: alert Skin exam: Present: warm, dry, intact, normal color. Absent: rash Course Vital Signs 02/04/21 10:02 Temperature 98 F Pulse Rate 91 Respiratory 18 Rate Blood Pressure 158/82 O2 Sat by Pulse 95 Oximetry Medical Decision Making - Medical Decision Making 71-year-old female presented for left lower quadrant pain. CT shows evidence of diverticulitis no abscesses no free air no perforation. Labs essentially unremarkable be discharged on oral antibiotics, clear liquid out. Return pa rameters were discussed. - Lab Data Result diagrams: 02/04/21 10:44 02/04/21 10:44 Lab Results 02/04/21 02/04/21 02/04/21 Range/Units 10:44 10:44 10:44 WBC 8.9 (3.8-10.6) k/uL RBC 5.10 (3.80-5.40) m/uL Hgb 15.1 (11.4-16.0) gm/dL Hct 46.0 (34.0-46.0) % MCV 90.1 (80.0-100.0) fL MCH 29.6 (25.0-35.0) pg MCHC 32.9 (31.0-37.0) g/dL RDW 12.4 (11.5-15.5) % Plt Count 150 (150-450) k/uL MPV 11.4 Neutrophils % 75 % Lymphocytes % 17 % Monocytes % 5 % Eosinophils % 1 % Basophils % 0 % Neutrophils # 6.7 (1.3-7.7) k/uL Lymphocytes # 1.5 (1.0-4.8) k/uL Monocytes # 0.5 (0-1.0) k/uL Eosinophils # 0.1 (0-0.7) k/uL Basophils # 0.0 (0-0.2) k/uL Sodium 138 (137-145) mmol/L Potassium 4.8 (3.5-5.1) mmol/L Chloride 106 (98-107) mmol/L Carbon Dioxide 25 (22-30) mmol/L Anion Gap 7 mmol/L BUN 16 (7-17) mg/dL Creatinine 0.64 (0.52-1.04) mg/dL Est GFR (CKD-EPI)AfAm >90 (>60 ml/min/1.73 sqM) Est GFR (CKD-EPI)NonAf >90 (>60 ml/min/1.73 sqM) Glucose 113 H (74-99) mg/dL Plasma Lactic Acid Rubio (0.7-2.0) mmol/L Calcium 9.5 (8.4-10.2) mg/dL Total Bilirubin 1.1 (0.2-1.3) mg/dL AST 32 (14-36) U/L ALT 17 (4-34) U/L Alkaline Phosphatase 57 (38-126) U/L Total Protein 6.9 (6.3-8.2) g/dL Albumin 4.1 (3.5-5.0) g/dL Lipase 115 (23-300) U/L Urine Color Yellow Urine Appearance Cloudy H (Clear) Urine pH 5.5 (5.0-8.0) Ur Specific [place] 1.020 (1.001-1.035) Urine Protein Negative (Negative) Urine Glucose (UA) Negative (Negative) Urine Ketones Negative (Negative) Urine Blood Negative (Negative) Urine Nitrite Negative (Negative) Urine Bilirubin Negative (Negative) Urine Urobilinogen <2.0 (<2.0) mg/dL Ur Leukocyte Esterase Small H (Negative) Urine RBC 1 (0-5) /hpf Urine WBC 5 (0-5) /hpf Ur Squamous Epith Cells 26 H (0-4) /hpf Urine Bacteria Rare H (None) /hpf Urine Mucus Few H (None) /hpf 02/04/21 Range/Units 10:44 WBC (3.8-10.6) k/uL RBC (3.80-5.40) m/uL Hgb (11.4-16.0) gm/dL Hct (34.0-46.0) % MCV (80.0-100.0) fL MCH (25.0-35.0) pg MCHC (31.0-37.0) g/dL RDW (11.5-15.5) % Plt Count (150-450) k/uL MPV Neutrophils % % Lymphocytes % % Monocytes % % Eosinophils % % Basophils % % Neutrophils # (1.3-7.7) k/uL Lymphocytes # (1.0-4.8) k/uL Monocytes # (0-1.0) k/uL Eosinophils # (0-0.7) k/uL Basophils # (0-0.2) k/uL Sodium (137-145) mmol/L Potassium (3.5-5.1) mmol/L Chloride (98-107) mmol/L Carbon Dioxide (22-30) mmol/L Anion Gap mmol/L BUN (7-17) mg/dL Creatinine (0.52-1.04) mg/dL Est GFR (CKD-EPI)AfAm (>60 ml/min/1.73 sqM) Est GFR (CKD-EPI)NonAf (>60 ml/min/1.73 sqM) Glucose (74-99) mg/dL Plasma Lactic Acid Rubio 0.8 (0.7-2.0) mmol/L Calcium (8.4-10.2) mg/dL Total Bilirubin (0.2-1.3) mg/dL AST (14-36) U/L ALT (4-34) U/L Alkaline Phosphatase (38-126) U/L Total Protein (6.3-8.2) g/dL Albumin (3.5-5.0) g/dL Lipase (23-300) U/L Urine Color Urine Appearance (Clear) Urine pH (5.0-8.0) Ur Specific [place] (1.001-1.035) Urine Protein (Negative) Urine Glucose (UA) (Negative) Urine Ketones (Negative) Urine Blood (Negative) Urine Nitrite (Negative) Urine Bilirubin (Negative) Urine Urobilinogen (<2.0) mg/dL Ur Leukocyte Esterase (Negative) Urine RBC (0-5) /hpf Urine WBC (0-5) /hpf Ur Squamous Epith Cells (0-4) /hpf Urine Bacteria (None) /hpf Urine Mucus (None) /hpf Disposition Clinical Impression: Diverticulitis Disposition: HOME SELF-CARE Condition: Stable Instructions (If sedation given, give patient instructions): Diverticulitis (ED), Diverticulitis Diet (ED) Additional Instructions: Please return to the Emergency Department if symptoms worsen or any other concerns. Prescriptions: Amoxicillin/Potassium Clav [Augmentin 875-125 Tablet] 1 tab PO Q12HR #20 tab Is patient prescribed a controlled substance at d/c from ED?: No Referrals: Flynn Palomino MD [Primary Care Provider] - 1-2 days Time of Disposition: 12:54
[2021-02-04 11:28] LABS: ALT 17 U/L (4-34); AST 32 U/L (14-36); African American GFR (CKD) >90 (>60 ml/min/1.73 sqM); Albumin 4.1 g/dL (3.5-5.0); Alkaline Phosphatase 57 U/L (38-126); Anion Gap 7 mmol/L; Blood Urea Nitrogen 16 mg/dL (7-17); Calcium 9.5 mg/dL (8.4-10.2); Carbon Dioxide 25 mmol/L (22-30); Chloride 106 mmol/L (98-107); Glucose 113 mg/dL (74-99); Lipase 115 U/L (23-300); Non-African American GFR(CKD) >90 (>60 ml/min/1.73 sqM); Sodium 138 mmol/L (137-145); Total Bilirubin 1.1 mg/dL (0.2-1.3); Total Protein 6.9 g/dL (6.3-8.2)
[2021-02-04 11:29] LABS: Potassium 4.8 mmol/L (3.5-5.1)
[2021-02-04 11:36] LABS: Appearance,Urine Cloudy (Clear); Bacteria,Urine Rare /hpf; Bilirubin,Urine Negative (Negative); Blood,Urine Negative (Negative); Color,Urine Yellow; Glucose,Urine (UA) Negative (Negative); Ketones,Urine Negative (Negative); Leukocyte Esterase,Urine Small (Negative); Mucus,Urine Few /hpf; Nitrite,Urine Negative (Negative); PH, Urine 5.5 (5.0-8.0); Protein,Urine Negative (Negative); RBC,Urine 1 /hpf (0-5); Squamous Epithelial Cell,Urine 26 /hpf (0-4); Urobilinogen,Urine <2.0 mg/dL (<2.0); WBC,Urine 5 /hpf (0-5)
--- NOTE | 2021-02-04 12:24 | CT ---
EXAMINATION TYPE: CT abdomen pelvis w con DATE OF EXAM: 02/04/2021 COMPARISON: None HISTORY: 71-year-old female LLQ abdominal pain TECHNIQUE: Contiguous axial scanning of the abdomen and pelvis following administration of 100 ml Iso mono 300 IV contrast. Delayed images through the kidneys and coronal/sagittal reconstructions perform ed. CT DLP: 946.6 mGycm Automated exposure control for dose reduction was used. FINDINGS: Heart normal size without pericardial effusion. Some stringy atelectasis lower lungs. No focal liver lesion or biliary ductal dilatation. Portal venous system is patent. Gallbladder, adrenal glands, right kidney, spleen, and pancreas appear within normal limits. 1.1 cm cortical cyst lower pole left kidney. Mild to moderate atelectatic calcifications abdominal aorta and iliac arteries. No aneurysm. There is some gastric fold thickening throughout the stomach. No dilated small bowel or free air. Appendix not clearly visualized. No secondary findings of acute appendicitis. Mild stool burden. Lower descending and proximal to mid sigmoid diverticulosis present. There is foca l mild to moderate wall thickening with moderate surrounding inflammatory fat stranding at the proxim al sigmoid. Trace tracking left adnexal free fluid. Bladder partially distended. Uterus surgically absent. Both ovaries are visualized. No pelvic lymphad enopathy seen. Bones: Moderate to advanced degenerative disc disease L5-S1. Mild elsewhere throughout the lumbar spi ne. Facet arthropathy mid to lower lumbar spine. IMPRESSION: 1. EXAM POSITIVE FOR ACUTE DIVERTICULITIS INVOLVING THE PROXIMAL SIGMOID COLON WITH MILD TO MODERATE INFLAMMATION. TRACE REACTIVE FREE FLUID WITHIN THE LEFT SIDE OF THE PELVIS. NO ABSCESS OR FREE AIR. 2. DIFFUSE GASTRIC FOLD THICKENING. CORRELATE FOR ANY SYMPTOMS OF A POTENTIAL GASTRITIS. DIRECT VISUA LIZATION IF INDICATED.
[2021-02-04] MEDS ORDERED: ACET/COD 300 MG/30 MG STARTER PACK 6 TAB BTL PO STA (12:54)
== END 2021-02-04 13:27 | disposition home or self-care (01) ==
LOC: EC 09:47
DX: K57.32 Diverticulitis of large intestine without perforation or abscess without bleeding (principal); K21.9 Gastro-esophageal reflux disease without esophagitis; I10 Essential (primary) hypertension; F41.9 Anxiety disorder, unspecified; F32.9 Major depressive disorder, single episode, unspecified; Z79.82 Long term (current) use of aspirin; Z88.1 Allergy status to other antibiotic agents; Z90.49 Acquired absence of other specified parts of digestive tract; Z90.89 Acquired absence of other organs; Z90.710 Acquired absence of both cervix and uterus; Z98.51 Tubal ligation status
CPT/HCPCS: 99284; 96374; 96361; 36415; 80053; 83605; 83690; 85025; 81001; 74177; J1885; Q9967

== ENCOUNTER 2021-03-10 07:02 | Day surgery (SDC) | payer MEDICARE ==
[2021-03-07 16:49] VITALS: BMI 30.2
[2021-03-10 07:32] VITALS: TEMP 98.2
[2021-03-10] MEDS ORDERED: LACTATED RINGERS 1,000 ML IV ONE (07:37)
[2021-03-10] MEDS ORDERED: MIDAZOLAM 2 MG/2 ML VIAL ONE (07:40)
[2021-03-10] MEDS ORDERED: IOPAMIDOL M200 10 ML VIAL ONE (07:40)
[2021-03-10] MEDS ORDERED: methylPREDNISolone ACETATE 40 MG/ML 1 ML VIAL ONE (07:40)
[2021-03-10] MEDS ORDERED: .fentaNYL (PF) 50 MCG/ML AMP ONE (07:40)
[2021-03-10] MEDS ORDERED: IV FLUID CONTINUATION 900 ML IV ONE (07:56)
--- NOTE | 2021-03-10 07:56 | P.PCN ---
Date of Procedure: 03/10/21 Description of Procedure: Procedure: 1. L5-S1 Epidural steroid injection under fluoroscopic guidance #1 out of 3, 2. Lumbar epidurogram PREOPERATIVE DIAGNOSIS: Lumbar degenerative disc disease, and Lumbar radiculopathy. POSTOPERATIVE DIAGNOSIS: Lumbar degenerative disc disease, and Lumbar radiculopathy. SURGEON: Misty Sanchez ANESTHESIA: Local with 1% lidocaine, and IV sedation : Versed 1 mg, and fentanyl 50 g EBL: None. Specimen removed: None Fluoroscopic image: saved to electronic medical records PROCEDURE INDICATION: The patient had history of Lumbar degenerative disc disease and Lumbar radiculopathy. Failed to conservative therapy. Presented for epidural steroid injection. PROCEDURE DESCRIPTION: The patient was seen and identified in the preoperative area. Risks, benefits, complications, and alternatives were discussed with the patient. The patient agreed to proceed with the procedure and signed the consent. IV was started, and vital signs were stable. Patient was taken to the procedure area, and time out was completed. The patient was placed in the prone position on procedure table and a pillow was placed under the abdomen to reduce lumbar lordosis. The lumbosacral area was prepped and draped in the usual sterile fashion. Critical pause was taken. Vital signs were closely monitored during the procedure. Using anterior-posterior fluoroscopy, the L5-S1 interlaminar space was identified, and skin and deeper tissues were localized with 1% lidocaine. Using anterior-posterior fluoroscopy, lateral fluoroscopy, and [id number] technique, a 20 gauge 3.5 Tuohy epidural needle entered the epidural space. After negative aspiration of CSF and blood with no paresthesias, 1 ml of [id number] contrast dye was injected and an excellent epidurogram was seen. Again after negative aspiration of CSF and blood with no paresthesias, 10 mL of block solution was injected into the epidural space. Block solution contained 40 mg of Depo-Medrol, and 9 mL of preservative-free normal saline. Needle was withdrawn intact, skin was cleansed, and bandages were applied. COMPLICATIONS: None. DISPOSITION / PLANS: The patient was placed in a supine position and transferred to the recovery area in a stable condition for observation. Patient was dis charged from the recovery room after meeting discharge criteria. Home discharge instructions given to the patient by the staff. The patient was reexamined prior to discharge. The patient will schedule a follow up in the clinic in 4 weeks.
[2021-03-10] MEDS ORDERED: LACTATED RINGERS 1,000 ML IV SCH (08:00)
[2021-03-10 08:13] VITALS: RESP 16
[2021-03-10 08:14] VITALS: BP 138/78; PULSE 71
--- NOTE | 2021-03-10 10:04 | FL ---
EXAMINATION TYPE: FL guided pain mgmt statistic DATE OF EXAM: 03/10/2021 HISTORY: Fluoroscopy time 4 seconds of fluoroscopy provided. IMPRESSION: 1. Fluoroscopy time.
== END 2021-03-10 08:28 | disposition home or self-care (01) ==
LOC: ORPAIN 07:02
DX: M51.16 Intervertebral disc disorders with radiculopathy, lumbar region (principal); M19.90 Unspecified osteoarthritis, unspecified site; K21.9 Gastro-esophageal reflux disease without esophagitis; Z79.899 Other long term (current) drug therapy
CPT/HCPCS: 62323; J2250; J1030; J3010; Q9966; 99152

== ENCOUNTER → 2021-04-06 | Outpatient (CLI) | payer MEDICARE ==
--- NOTE | 2021-04-06 09:12 | P.PN ---
Subjective Progress Note Date: 04/06/21 This is a follow-up visit for this 71 years old female with a chronic history of severe low back pain, she is diagnosed with lumbar spinal stenosis, lumbar degenerative disc disease, and lumbar spondylosis with lumbar facet arthropathy without myelopathy, sacroiliitis, we have done RFA of the medial branch lumbar area, later on we did Lumbar epidural steroid injections at L5-S1 ,she reporte that her pain improved significantly , she denies any motor or sensory deficit she denies any numbness or tingling sensation, no change in bowel movement or urination, she continued to use Mobic 7.5 mg twice a day when necessary and she already done physical therapy and she continues to do home exercise Physical Examinations : -Constitutiona : Cooperative , not in acute distress . -HEENT : nech : supple , no Lymphadenopathy , normal thyroid size . : eyes : no ptosis , no icterus, no photophobia . - neurologic : Cranial nerve II to XII intact , no focal neurological deffecit . -psychatric : alert , oriented X 3 , appropriate affect , intact judgment and insight . -Lymphatic : no Lymphadenopathy . - musculoskeltal : Lumber spine moter stegnth lower extremities ,thigh and legs 5/5 Right side , 5/5 Left side MRI of the lumbar spine= lumbar spinal stenosis lumbar foraminal stenosis lumbar degenerative disc disease and lumbar facet arthropathy Assessment and plan=1-lumbar spinal stenosis. 2-Lumbar degenerative disc disease. 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 Low back pain and improved after RFA medial branch lumbar area. And after lumbar epidural steroid injection x1 she will follow up in the pain clinic when necessary - PQRS measures = - Patient's medications are documented in the chart. -Tobacco use is negative and counseling.Given. -Patient's has not received pneumococcal vaccine. -Advanced care planning discussed, patient not eligible. -Opiate contract not signed. -Pain positive and follow-up visit/procedure is scheduled. -Patient's blood pressure measured [ 136/66 ] , and documented in the record ,and patient will follow up with the primary care. -Patient's weight was measured and body mass index [ 29.3 ] above the normal limits and counseling was done. and patient instructed to follow-up with the primary care physician. -Patient was not identified as an unhealthy alcohol user Time with Patient: Less than 30
[2021-04-06 09:14] VITALS: BP 136/66; PULSE 75; RESP 18; TEMP 98
== END ==
LOC: PNWHC3 08:38
PROVIDERS: ATTEND Specialist
DX: M48.061 Spinal stenosis, lumbar region without neurogenic claudication (principal); M51.36 Other intervertebral disc degeneration, lumbar region; M47.816 Spondylosis without myelopathy or radiculopathy, lumbar region; Z91.048 Other nonmedicinal substance allergy status; Z88.1 Allergy status to other antibiotic agents; Z88.8 Allergy status to other drugs, medicaments and biological substances
CPT/HCPCS: 99211

== ENCOUNTER → 2021-05-17 | Outpatient (CLI) | payer MEDICARE ==
--- NOTE | 2021-05-17 13:01 | FL ---
EXAMINATION TYPE: FL barium swallow DATE OF EXAM: 05/17/2021 CLINICAL HISTORY: Dysphasia. Food getting stuck causing hiccups for over one year mid to lower thorac ic level. TECHNIQUE: A double contrast esophagram is performed utilizing air and barium. A total of 23 second s of fluoroscopic time was utilized during procedure and 50 images obtained COMPARISON: None FINDINGS: The esophagus shows normal satisfactory and emptying into the stomach. No diverticulum is s een. No evidence of fixed hiatal hernia or stricture noted. Small sliding-type hiatal hernia noticed during prone drinking. No significant gastroesophageal reflux was seen during real time performance o f this study. IMPRESSION: No significant abnormality is seen to account for patient's symptoms.
== END | disposition home or self-care (01) ==
LOC: RADFLMAIN 10:58
PROVIDERS: ATTEND Internal Medicine
DX: R13.10 Dysphagia, unspecified (principal)
CPT/HCPCS: 74220

== ENCOUNTER → 2021-10-31 | Outpatient (CLI) | payer MEDICARE ==
[2021-10-31 14:00] VITALS: BP 144/71; PULSE 65; RESP 18; TEMP 98.2
--- NOTE | 2021-10-31 14:02 | P.PAINPG ---
PQRS Measure Charge Sheet Comment: A 71 yr old female with a history of severe and chronic headaches secondary to R occipital neuralgia presents today for evaluation. Pain level is currently at 5/10 in intensity, constant, localized in the base of the neck, R side, w radiation up the R scalp, sharp/ shooting in character. Pain is provoked by hyperextension and palpation on the base of the R side of the head. Pain is alleviated with medications (Mobic from Dr Kay, Tylenol OTC), ice, home exercise regimen, laying supine, repositioning and rest. Interventional pain procedures completed include BL RFA L3-L5, LESI L5-S1 Patient is currently on Tylenol OTC, Mobic. Patient denies any side effects of the medication(s), denies excessive drowsiness or sleepiness, denies suicidal ideation and reports that the current pain medication is helping to control the pain and improve activities of daily living. Patient denies any motor or sensory deficits. Patient denies any fever or night sweats, denies any change in the bowel movements or urination. Physical Examination: -Constitutional: Cooperative. Not in acute distress . - Neurologic: Cranial nerve II to XII intact. No focal neurological deficits. - Psychatric: Alert & oriented x 3. Matching mood & appropriate affect. Judgment and insight intact. - Musculoskeletal: Cervical spine: + R ELYSIA TTP Muscle bulk/ tone/ strength in the bilateral upper extremities normal Vertebral body tenderness to palpation over Spurling test positive Distraction test positive Facet loading test positive Thoracic spine Muscle bulk / tone/ strength in the bilateral paraspinal muscles normal Vertebral body tender to palpation over Facet loading test positive Lumbar spine: Motor bulk/ tone/ strength lower extremities , thigh and legs : 5/5 Deep tendon reflexes : Normal Knee Jerk. Normal Ankle Jerk . Vertebral body tenderness to palpation over Lumbar Facet Loading Test positive Straight Leg Raise: positive at 30 degrees right side/ left side Gaenslen's Test positive Sacral spine : Severe tenderness over the Sacroiliac joint: right side / left side Range of motion: Flexion of the lumbar spine <60 degrees Range of motion: Extension of the lumbar spine <20 degrees Gaenslen's Test positive Michele's Test positive Corey test: positive right side / left side Thigh Thrust Test Sacral Thrust Test Assessment and plan: Chronic Occipital Neuralgia Recommendation of R ELYSIA. May need a series of injections, up until RFA, for optimal pain relief. Risks, benefits of procedure discussed and pt verbali zed understanding. Admits to anticoagulant use and denies medical history of diabetes. Protocol for discontinuation/ continuation of medications serafin procedure discussed. All patient questions answered MAPS reviewed and it was appropriate. I have spent less than 30 minutes on patient care today. Dr Cope was available by phone for the evaluation of this patient. The time was used to review the medical records including relevant urine studies and Prescription history (MAPs), review of the available imaging, evaluation and examination of the patient, coordination of care with the medical staff and if applicable referring physicians, as well as creation of the medical record PQRS Narrative: Smoking Status Never smoker Hx Alcohol Use (MH) No Home Medications: Ambulatory Orders Pantoprazole Sodium [Protonix] 40 mg PO DAILY 04/03/17 Aspirin [[place] Aspirin EC] 81 mg PO DAILY 04/20/18 Escitalopram [Lexapro] 20 mg PO HS 11/09/20 Meloxicam [Mobic] 7.5 mg PO DAILY PRN 11/09/20 Econazole 1% Cream [Spectazole] 1 applic TOPICAL DAILY PRN 02/04/21 Estrogens, Conjugated Cream [Premarin Vaginal Cream] 1 applicator VAGINAL DIRECTED 02/04/21 Fexofenadine HCl 180 mg PO DAILY PRN 02/04/21 Cholecalciferol [Vitamin D3 (25 Mcg = 1000 Iu)] 50 mcg PO DAILY 03/07/21 Controlled Substance Measures - Controlled Substance Measures Is patient prescribed a controlled substance at discharge?: No
== END ==
LOC: PNWHC3 13:38
PROVIDERS: ATTEND Specialist
DX: M54.81 Occipital neuralgia (principal); G43.101 Migraine with aura, not intractable, with status migrainosus; Z91.09 Other allergy status, other than to drugs and biological substances; Z91.048 Other nonmedicinal substance allergy status; Z88.1 Allergy status to other antibiotic agents
CPT/HCPCS: 99211

== ENCOUNTER → 2022-02-23 | Outpatient (CLI) | payer MEDICARE ==
[2022-02-23 10:47] VITALS: BP 133/80; PULSE 78; RESP 18; TEMP 98.4
--- NOTE | 2022-02-23 14:23 | P.PAINPG ---
PQRS Measure Charge Sheet Comment: A 72 yr old female with a history of severe and chronic low back pain secondary to lumbar DDD and spondylosis with facet arthropathy without myelopathy presents today for evaluation s/p BL RFA L3-L5. Pt states she experienced 100% pain relief x 14 mo s/p procedure. Pain level is currently at 7/10 in intensity, constant, localized in the lower lumbar spine,cramping in character w shooting towards . Pain is provoked by repositioning. Pain is alleviated with PT in 2018, home exercise daily, chiropractic treatments Q3 wks, heat, ice, meds (Tylenol), reclining and rest. Interventional pain procedures completed include BL RFA L3-L5 (2020) Patient is currently on Tylenol Patient denies any side effects of the medication(s), denies excessive drowsiness or sleepiness, denies suicidal ideation and reports that the current pain medication is helping to control the pain and improve activities of daily living. Patient denies any motor or sensory deficits. Patient denies any fever or night sweats, denies any change in the bowel movements or urination. Physical Examination: -Constitutional: Cooperative. Not in acute distress . - Neurologic: Cranial nerve II to XII intact. No focal neurological deficits. - Psychatric: Alert & oriented x 3. Matching mood & appropriate affect. Judgment and insight intact. - Musculoskeletal: Cervical spine: Muscle bulk/ tone/ strength in the bilateral upper extremities normal Vertebral body tenderness to palpation over Spurling test positive Distraction test positive Facet loading test positive Thoracic spine Muscle bulk / tone/ strength in the bilateral paraspinal muscles normal Vertebral body tender to palpation over Facet loading test positive Lumbar spine: Motor bulk/ tone/ strength lower extremities , thigh and legs : 5/5 Deep tendon reflexes : Normal Knee Jerk. Normal Ankle Jerk . Vertebral body tenderness to palpation over Lumbar Facet Loading Test positive jump reflex over BL L4-L5, L5-S1 facets Straight Leg Raise: positive at 30 degrees right side/ left side Gaenslen's Test positive Sacral spine : Severe tenderness over the Sacroiliac joint: right side / left side Range of motion: Flexion of the lumbar spine <60 degrees Range of motion: Extension of the lumbar spine <20 degrees Gaenslen's Test positive Corey test: positive right side / left side Thigh Thrust Test Sacral Thrust Test Assessment and plan: Chronic low back pain secondary to lumbar degenerative disc disease, spondylosis with facet arthropathy without myelopathy Recommendation of BL RFA L4-L5, L5-S1. Pt exhibited sufficient and optimal pian relief w prior BL RFA L4-L5, L5- S1 procedure. Risks, benefits of procedure discussed and pt verbalized understanding. Admits to anticoagulant use or medical history of diabetes. Protocol for discontinuation/ continuation of medications serafin procedure discussed. All patient questions answered I have spent less than 30 minutes on patient care today. Dr Cope was available by phone for the evaluation of this patient. The time was used to review the medical records including relevant urine studies and Prescription history (MAPs), review of the available imaging, evaluation and examination of the patient, coordination of care with the medical staff and if applicable referring physicians, as well as creation of the medical record PQRS Narrative: Smoking Status Never smoker Hx Alcohol Use (MH) No Home Medications: Ambulatory Orders Pantoprazole Sodium [Protonix] 40 mg PO DAILY 04/03/17 Aspirin [[place] Aspirin EC] 81 mg PO DAILY 04/20/18 Escitalopram [Lexapro] 20 mg PO HS 11/09/20 Meloxicam [Mobic] 7.5 mg PO DAILY PRN 11/09/20 Econazole 1% Cream [Spectazole] 1 applic TOPICAL DAILY PRN 02/04/21 Estrogens, Conjugated Cream [Premarin Vaginal Cream] 1 applicator VAGINAL DIRECTED 02/04/21 Fexofenadine HCl 180 mg PO DAILY PRN 02/04/21 Cholecalciferol [Vitamin D3 (25 Mcg = 1000 Iu)] 50 mcg PO DAILY 03/07/21 Controlled Substance Measures - Controlled Substance Measures Is patient prescribed a controlled substance at discharge?: No
== END ==
LOC: PNWHC3 09:36
PROVIDERS: ATTEND Specialist
DX: M47.816 Spondylosis without myelopathy or radiculopathy, lumbar region (principal); M51.36 Other intervertebral disc degeneration, lumbar region; G89.29 Other chronic pain; Z79.01 Long term (current) use of anticoagulants; E11.9 Type 2 diabetes mellitus without complications; Z79.4 Long term (current) use of insulin; Z91.048 Other nonmedicinal substance allergy status; Z88.1 Allergy status to other antibiotic agents
CPT/HCPCS: 99211

== ENCOUNTER 2022-03-31 08:32 | Day surgery (SDC) | payer MEDICARE ==
[2022-03-28 15:51] VITALS: BMI 27.4
[~2022-03-31 08:32] MED LIST changes: +LIDOCAINE 1% (10MG/ML) FOR IV START INTRADERMA PRN
[2022-03-31 09:04] VITALS: RESP 16; TEMP 97.6
[2022-03-31] MEDS ORDERED: fentaNYL (PF) 50 MCG/ML 2 ML AMP ONE (09:13)
[2022-03-31] MEDS ORDERED: MIDAZOLAM 2 MG/2 ML VIAL ONE (09:13)
[2022-03-31] MEDS ORDERED: ROPIVACAINE 5 MG/ML 20 ML AMPULE ONE (09:13)
[2022-03-31] MEDS ORDERED: methylPREDNISolone ACETATE 40 MG/ML 1 ML VIAL ONE (09:13)
--- NOTE | 2022-03-31 09:41 | P.PCN ---
Date of Procedure: 03/31/22 Procedure(s) Performed: PREOPERATIVE DIAGNOSIS: 1-Lumbar Spondylosis with Facet Arthropathy without myelopathy. 2-lumbar degenerative disc disease 3-Sacroiliitis. POSTOPERATIVE DIAGNOSIS: 1- Lumbar Spondylosis with Facet Arthropathy without myelopathy.2-lumbar degenerative disc disease. 3- Sacroilitis. PROCEDURES : Bilateral Radiofrequency thermocoagulation, L3 , L4 , and L5 medial branch, with fluoroscopic guidance (fluoroscopy images available in the radiology department) ( to denervate the facet joint at Bilateral L4-5 ,and L5-S1 levels ). ANESTHESIA: monitered anesthesia care, as per anesthesia department . EBL: Minimal PROCEDURE INDICATION: The patient with low back pain secondary to lumbar facet arthropathy who had more than 50% relief of her pain with previous diagnostic lumbar medial branch block with bupivacaine. PROCEDURE DESCRIPTION / TECHNIQUE: The patient was seen and identified in the preoperative area. Risks, benefits, complications, including but not limited to risk of infection ,bleeding , allergic reactions to the medications and no complete pain releife , and alternatives were discussed with the patient, the patient agreed to proceed with the procedure and signed the consent. IV was started. Vital signs remained stable throughout the procedure. Patient was taken to the OR and time out was completed. The patient was placed in the prone position on the procedure table. The lumber area was prepped and draped in the usual sterile fashion. . Vital signs were closely monitored during the procedure .IV sedation was used during the procedure to decrease patients anxiety. Using AP and then oblique fluoroscopy, the ``eye of the Bernardo dog corresponding to the connection between the superior and transverse articular processes of right L3, L4, and L5 were identified, marked, and localized with 1% lidocaine. Subsequently, a 18 -qr radiofrequency cannula with a 10- mm active tip was advanced guided by fluoroscopy to each of the``eyes of the Bernardo dog at right L3, L4, and L5. Each site then underwent sensory testing at 50 Hz and 0 to 1 volt and motor testing at 2.5 Hz and 0 to 3 volt with local stimulation, but no radicular symptoms down the legs. Thereafter each sites underwent radiofrequency thermocoagulation at 80 degrees celsius for 90 seconds after injecting 0.5 ml of PF Ropivacaine 1ml, then after the thermocoagulation done , 1 ml of the block solution containing Depo-Medrol 20 mg and 3 ml of Ropivacaine 0.5% was injected at the right L3 , L4 , and L5 , levels after negative aspiration of CSF and blood and with no paresthesias. Cannulas were retracted while injecting lidocaine 1% until the needle is out. The same procedure was repeated at the level of Left L3, L4, and L5 levels. At the end of the procedure, the skin was cleansed and bandages were applied. COMPLICATIONS: No acute complications. DISPOSITION / PLANS: The patient was placed in a supine position and transferred to the recovery area in a stable condition for observation and was discharged from the recovery room after meeting discharge criteria. Home discharge instructions given to the patient by the staff. The patient was reexamined prior to discharge. The patient will schedule a follow up in the clinic in 2-4 weeks.
[2022-03-31] MEDS ORDERED: IV FLUID CONTINUATION 600 ML IV ONE (09:44)
--- NOTE | 2022-03-31 09:58 | FL ---
EXAMINATION TYPE: FL guided pain mgmt statistic DATE OF EXAM: 03/31/2022 HISTORY: Fluoroscopy time 14 seconds of fluoroscopy provided. IMPRESSION: 1. Fluoroscopy time.
[2022-03-31 10:17] VITALS: BP 168/92
[2022-03-31 10:54] VITALS: PULSE 67
== END 2022-03-31 10:53 | disposition home or self-care (01) ==
LOC: ORPAIN 08:32
PROVIDERS: ATTEND Specialist
DX: M51.36 Other intervertebral disc degeneration, lumbar region (principal); M47.816 Spondylosis without myelopathy or radiculopathy, lumbar region; M46.1 Sacroiliitis, not elsewhere classified
CPT/HCPCS: 64635; 64636 ×2; J2250; J1030; J3010; J2795

== ENCOUNTER → 2022-04-17 | Outpatient (CLI) | payer MEDICARE ==
[2022-04-17 09:37] VITALS: BP 131/62; PULSE 74; RESP 18
--- NOTE | 2022-04-17 14:46 | P.PAINPG ---
PQRS Measure Charge Sheet Comment: A 72 yr old female with a history of severe and chronic low back pain secondary to lumbar DDD and spondylosis with facet arthropathy without myelopathy presents today for evaluation s/p BL RFA L3-L5. Pt states she experienced 90 % pain relief s/p procedure. Pain level is currently at 7 /10 in intensity, constant, localized in the lumbar spine, sharp & burning in character w shooting towards L lateral hip. Pain is provoked by climbing stairs and lifting. Pain is alleviated with PT in 2018, home exercise daily, chiropractic treatments semi monthly, ice, meds (Advil), repositioning and rest. Interventional pain procedures completed include BL RFA L3-L5 Patient is currently on Advil OTC Patient denies any side effects of the medication(s), denies excessive drowsiness or sleepiness, denies suicidal ideation and reports that the current pain medication is helping to control the pain and improve activities of daily living. Patient denies any motor or sensory deficits. Patient denies any fever or night sweats, denies any change in the bowel movements or urination. Physical Examination: -Constitutional: Cooperative. Not in acute distress . - Neurologic: Cranial nerve II to XII intact. No focal neurological deficits. - Psychatric: Alert & oriented x 3. Matching mood & appropriate affect. Judgme nt and insight intact. - Musculoskeletal: Cervical spine: Muscle bulk/ tone/ strength in the bilateral upper extremities normal Vertebral body tenderness to palpation over Spurling test positive Distraction test positive Facet loading test positive Thoracic spine Muscle bulk / tone/ strength in the bilateral paraspinal muscles normal Vertebral body tender to palpation over Facet loading test positive Lumbar spine: Motor bulk/ tone/ strength lower extremities , thigh and legs : 5/5 Deep tendon reflexes : Normal Knee Jerk. Normal Ankle Jerk . Vertebral body tenderness to palpation over Lumbar Facet Loading Test positive TTP over BL L2-L3, L3-L4 facets Straight Leg Raise: positive at 30 degrees right side/ left side Gaenslen's Test positive Sacral spine : Severe tenderness over the Sacroiliac joint: right side / left side Range of motion: Flexion of the lumbar spine <60 degrees Range of motion: Extension of the lumbar spine <20 degrees Gaenslen's Test positive Corey test: positive right side / left side Thigh Thrust Test Sacral Thrust Test Assessment and plan: Chronic low back pain secondary to lumbar degenerative disc disease, spondylosis with facet arthropathy without myelopathy Recommendation of L facet block of the medial branches L2-L3, L3-L4 #1. May need a series, up until RFA, for optimal pain relief. Risks, benefits of procedure discussed and pt verbalized understanding. Admits to anticoagulant use or medical history of diabetes. Protocol for discontinuation/ continuation of medications serafin procedure discussed. All patient questions answered I have spent less than 30 minutes on patient care today. Dr Cope was available by phone for the evaluation of this patient. The time was used to review the medical records including relevant urine studies and Prescription history (MAPs), review of the available imaging, evaluation and examination of the patient, coordination of care with the medical staff and if applicable referring physicians, as well as creation of the medical record PQRS Narrative: Smoking Status Never smoker Hx Alcohol Use (MH) No Home Medications: Ambulatory Orders Pantoprazole Sodium [Protonix] 40 mg PO DAILY 04/03/17 Aspirin [[place] Aspirin EC] 81 mg PO DAILY 04/20/18 Escitalopram [Lexapro] 20 mg PO HS 11/09/20 Meloxicam [Mobic] 7.5 mg PO DAILY PRN 11/09/20 Econazole 1% Cream [Spectazole] 1 applic TOPICAL DAILY PRN 02/04/21 Estrogens, Conjugated Cream [Premarin Vaginal Cream] 1 applicator VAGINAL DIRECTED 02/04/21 Fexofenadine HCl 180 mg PO DAILY PRN 02/04/21 Cholecalciferol [Vitamin D3 (25 Mcg = 1000 Iu)] 50 mcg PO DAILY 03/07/21 Controlled Substance Measures - Controlled Substance Measures Is patient prescribed a controlled substance at discharge?: No
== END ==
LOC: PNWHC3 09:13
PROVIDERS: ATTEND Specialist
DX: M47.816 Spondylosis without myelopathy or radiculopathy, lumbar region (principal); M51.36 Other intervertebral disc degeneration, lumbar region; G89.29 Other chronic pain; Z79.82 Long term (current) use of aspirin; Z91.048 Other nonmedicinal substance allergy status; Z88.1 Allergy status to other antibiotic agents
CPT/HCPCS: 99211

== ENCOUNTER 2022-05-05 06:18 | Day surgery (SDC) | payer MEDICARE ==
[2022-05-05 06:47] VITALS: TEMP 97
[2022-05-05] MEDS ORDERED: PROPOFOL 10 MG/ML 20 ML VIAL IV ONE (07:25)
[2022-05-05] MEDS ORDERED: LIDOCAINE 2% INJ 20 MG/ML (2 ML VIAL) ONE (07:25)
--- NOTE | 2022-05-05 07:43 | P.PCN ---
Date of Procedure: 05/05/22 Procedure(s) Performed: Brief history: Patient is a pleasant 72-year-old white female scheduled for an elective upper endoscopy as well as colonoscopy as a part of evaluation of GERD and prior history of colon polyps Procedure performed: Esophagogastroduodenoscopy Colonoscopy with snare polypectomy Preoperative diagnosis: GERD and history of colon polyps Anesthesia: [facility] [place] Procedure: After informed consent was obtained from the patient was brought into the endoscopy unit and IV sedation was administered by anesthesia under continuous monitoring. Initially upper endoscopy was done. The Olympus GF 160 video endoscope was inserted inserted into the mouth and esophagus intubated without any difficulty and was gradually advanced into the stomach and duodenum and carefully examined. The bulb and second part of the duodenum appeared normal. The scope was then withdrawn into the stomach adequately insufflated with air and upon careful examination the antrum and body, cardia and fundus appeared normal. The scope was then withdrawn into the esophagus. The GE junction was located at 40 cm to the incisors. It appeared regular with no erythema erosions or ulcerations. Rest of the esophagus appeared normal. Patient tolerated the procedure well. At this time the patient continued to remain sedation. Initial digital rectal examination was normal. Olympus CF 160 video colonoscope was then inserted into the rectum and gradually advanced to the cecum without any difficulty. Careful examination was performed as the scope was gradually being withdrawn. The prep was excellent. The cecum, ascending colon appeared normal. In the hepatic flexure there was a 7 mm polyp removed by snare polypectomy. Rest of the, transverse colon, descending colon, appeared normal in the distal sigmoid colon there was a limited polyp removed by snare polypectomy. Scattered sigmoid diverticulosis seen. Rest of the sigmoid colon and rectum appeared normal. Retroflexion was performed in the rectum and no lesions were noted. Patient tolerated the procedure well. Impression: 1. Upper endoscopy was within normal limits with no evidence of esophagitis or Castro's esophagus 2. Colonoscopy revealed a 7 mm hepatic flexure polyp and a 5 mm; sigmoid polyp status post polypectomy and scattered sigmoid diverticulosis. Recommendations: Findings of this examination were discussed with the patient as well as her family. She was advised to follow with the biopsy results. If the biopsy reveals adenoma she can have a repeat colonoscopy in 5 years.
[2022-05-05 07:52] VITALS: RESP 16
[2022-05-05 08:24] VITALS: BP 148/76; PULSE 80
== END 2022-05-05 08:46 | disposition home or self-care (01) ==
LOC: ORWHC2ENDO 06:18
PROVIDERS: ATTEND Internal Medicine Gastroenterology
DX: Z12.11 Encounter for screening for malignant neoplasm of colon (principal); K63.5 Polyp of colon; K57.30 Diverticulosis of large intestine without perforation or abscess without bleeding; K21.9 Gastro-esophageal reflux disease without esophagitis; I10 Essential (primary) hypertension; I49.3 Ventricular premature depolarization; Z79.899 Other long term (current) drug therapy; G93.0 Cerebral cysts; Z79.1 Long term (current) use of non-steroidal anti-inflammatories (NSAID)
CPT/HCPCS: 45385; 43235; 88305; J2704; J2001

== ENCOUNTER 2022-07-14 11:00 | Day surgery (SDC) | payer MEDICARE ==
[2022-07-12 15:45] VITALS: BMI 28.3
[2022-07-14 11:39] VITALS: RESP 16; TEMP 98.1
[2022-07-14] MEDS ORDERED: methylPREDNISolone ACETATE 40 MG/ML 1 ML VIAL ONE (11:48)
[2022-07-14] MEDS ORDERED: fentaNYL (PF) 50 MCG/ML 2 ML AMP ONE (11:48)
[2022-07-14] MEDS ORDERED: ROPIVACAINE 5 MG/ML 20 ML AMPULE ONE (11:48)
[2022-07-14] MEDS ORDERED: MIDAZOLAM 2 MG/2 ML VIAL ONE (11:48)
--- NOTE | 2022-07-14 11:59 | P.PCN ---
Date of Procedure: 07/14/22 Procedure(s) Performed: PREOPERATIVE DIAGNOSIS : 1- Lumbar spondylosis with Facet Arthropathy without myelopathy . 2- Lumber degenerative disc disease POSTOPERATIVE DIAGNOSIS: 1- Lumbar spondylosis with Facet Arthropathy without myelopathy . 2- Lumber degenerative disc disease PROCEDURE: Diagnostic Left L1 , L2 , L3 , medial branch block under fluoroscopy guidance(fluoroscopy images available in the radiology Department ) ( To target the facet joint between Left L2-3 , L3-4 )# 2nd ANESTHESIA:, Monitored anesthesia care as per anesthesia department. EBL: Minimal COMPLICATION: None PROCEDURE INDICATION: Chronic low back pain secondary to Facet arthropathy unresponsive to conservative treatment. PROCEDURE DESCRIPTION: the patient was seen and identified in the preop holding area , risks and benefits and possible complications of the procedure and alternative were discussed with the patient, and the patient agreed to proceed with the procedure and signed the consent and vital signs monitored during the procedure and fluoroscopy was used to maximize the benefit and accuracy of the needle placement, and sedation was given to decrease patient anxiety, patient was taken to the procedure room and placed in prone position vital signs monitored in the back prepped with chlorhexidine X3 then under strict sterile technique using a right oblique fluoroscopy ,the junction of the transverse process and the superior articulating process of the Left L1, L2 ,L3 , vertebra which corresponding to the fluoroscopy image of the eye of the Bernardo dog on the block side for the medial branches and subsequently , after local infiltration of skin and subcu tissuies with Ropivacaine 0.5 % , one mL at each level ,then 22-gauge Quincke-type needles , 3 needle was used , each one of them placed at the junction of the base of the transverse process and the superior articular process at the appropriate level, and the needle was advanced until the periosteum contacted, needle placement confirmed with AP oblique and lateral view and after appropriate needle placement confirmed, and after negative aspiration for heme and CSF and there was no paresthesia 1-1/2 mL of Ropivacaine 0.5% mixed with 20 mg Depo-Medrol , then half mL injected at each level after negative aspiration the needle subsequently removed At the end of the procedure and the needles removed and a bandage applied after the skin was cleaned the cleaning solution patient taken to recovery room in stable condition and monitors in the recovery room for 20-30 minutes and discharged home in stable condition after discharge criteria met and patient will follow up with the pain clinic in 2-4 weeks
[2022-07-14] MEDS ORDERED: IV FLUID CONTINUATION 1,000 ML IV ONE (12:02)
--- NOTE | 2022-07-14 12:08 | FL ---
EXAMINATION TYPE: FL guided pain mgmt statistic DATE OF EXAM: 07/14/2022 HISTORY: Fluoroscopy time 4 seconds of fluoroscopy provided. DAP .[id number] IMPRESSION: 1. Fluoroscopy time.
[2022-07-14 12:33] VITALS: BP 137/83; PULSE 73
== END 2022-07-14 13:23 | disposition home or self-care (01) ==
LOC: ORPAIN 11:00
PROVIDERS: ATTEND Specialist
DX: M51.36 Other intervertebral disc degeneration, lumbar region (principal); M47.816 Spondylosis without myelopathy or radiculopathy, lumbar region; G89.29 Other chronic pain; Z79.899 Other long term (current) drug therapy; I10 Essential (primary) hypertension; K21.9 Gastro-esophageal reflux disease without esophagitis; Z88.8 Allergy status to other drugs, medicaments and biological substances; Z79.82 Long term (current) use of aspirin
CPT/HCPCS: 64493; 64494; J2250; J1030; J3010; J2795

== ENCOUNTER → 2022-08-03 | Outpatient (CLI) | payer MEDICARE ==
[2022-08-03 12:23] VITALS: BP 139/86; PULSE 66; RESP 18; TEMP 97.9
--- NOTE | 2022-08-03 13:52 | P.PAINPG ---
PQRS Measure Charge Sheet Comment: A 72 yr old female with a history of severe and chronic LBP secondary to lumbar DDD and spondylosis with facet arthropathy without myelopathy presents today for evaluation s/p L MBB L1-L2, L2-L3 #2. Pt states she experienced 100 % pain relief x 2 wks s/p procedure. Pain level is provoked at 9/10 in intensity, constant, localized in the L lumbar spine, dull in character w shooting towards the buttocks and LEs. Pain is provoked by lifting or standing from a supine position. Pain is alleviated with PT in 2018, massage therapy weekly which started 1 wk ago, chiropractic treatments w last visit 1 mo ago, heat, ice, medications, repositioning and rest. Interventional pain procedures completed include L MBB L1-L3 x2 Patient is currently on Advil Patient denies any side effects of the medication(s), denies excessive drowsiness or sleepiness, denies suicidal ideation and reports that the current pain medication is helping to control the pain and improve activities of daily living. Patient denies any motor or sensory deficits. Patient denies any fever or night sweats, denies any change in the bowel movements or urination. Physical Examination: -Constitutional: Cooperative. Not in acute distress . - Neurologic: Cranial nerve II to XII intact. No focal neurological deficits. - Psychatric: Alert & oriented x 3. Matching mood & appropriate affect. Judgment and insight intact. - Musculoskeletal: Cervical spine: Muscle bulk/ tone/ strength in the bilateral upper extremities normal Vertebral body tenderness to palpation over Spurling test positive Distraction test positive Facet loading test positive TTP Thoracic spine Muscle bulk / tone/ strength in the bilateral paraspinal muscles normal Vertebral body tender to palpation over Facet loading test positive TTP Lumbar spine: Motor bulk/ tone/ strength lower extremities , thigh and legs : 5/5 Deep tendon reflexes : Normal Knee Jerk. Normal Ankle Jerk . Vertebral body tenderness to palpation over Lumbar Facet Loading Test positive TTP over L L1-L2, L2-L3 facets Straight Leg Raise: positive at 30 degrees right side/ left side Gaenslen's Test positive Sacral spine : Severe tenderness over the Sacroiliac joint: right side / left side Range of motion: Flexion of the lumbar spine <60 degrees Range of motion: Extension of the lumbar spine <20 degrees Gaenslen's Test positive right side / left side Corey test: positive right side / left side Thigh Thrust Test positive right side / left side Sacral Thrust Test positive right side / left side Assessment and plan: Chronic LBP secondary to lumbar DDD, spondylosis with facet arthropathy without myelopathy Recommendation of L RFA L1-L2, L2-L3. Pt exhibited suffcient pain relief w prior MBB procedures. Risks, benefits of procedure discussed and pt verbalized understanding. Admits to anticoagulant use or medical history of diabetes. Protocol for discontinuation/ continuation of medications serafin procedure discussed. All questions answered. I have spent less than 30 minutes on patient care today. Dr Cope was available by phone for the evaluation of this patient. The time was used to review the medical records including relevant urine studies and Prescription history (MAPs), review of the available imaging, evaluation and examination of the patient, coordination of care with the medical staff and if applicable referring physicians, as well as creation of the medical record PQRS Narrative: Smoking Status Never smoker Hx Alcohol Use (MH) Yes: OCCASIONAL Home Medications: Ambulatory Orders Pantoprazole Sodium [Protonix] 40 mg PO DAILY 04/03/17 Aspirin [[place] Aspirin EC] 81 mg PO DAILY 04/20/18 Escitalopram [Lexapro] 20 mg PO HS 11/09/20 Meloxicam [Mobic] 7.5 mg PO DAILY PRN 11/09/20 Econazole 1% Cream [Spectazole] 1 applic TOPICAL DAILY PRN 02/04/21 Estrogens, Conjugated Cream [Premarin Vaginal Cream] 1 applicator VAGINAL DIRECTED 02/04/21 Fexofenadine HCl 180 mg PO DAILY PRN 02/04/21 Cholecalciferol [Vitamin D3 (25 Mcg = 1000 Iu)] 50 mcg PO DAILY 03/07/21 busPIRone HCL [Buspirone HCl] 5 mg PO TID PRN 05/03/22 Ibuprofen [Advil] 200 mg PO Q8HR PRN 07/14/22 Controlled Substance Measures - Controlled Substance Measures Is patient prescribed a controlled substance at discharge?: No
== END ==
LOC: PNWHC3 09:12
PROVIDERS: ATTEND Specialist
DX: M51.36 Other intervertebral disc degeneration, lumbar region (principal); M47.816 Spondylosis without myelopathy or radiculopathy, lumbar region; G89.29 Other chronic pain; Z79.82 Long term (current) use of aspirin; Z91.048 Other nonmedicinal substance allergy status; Z88.1 Allergy status to other antibiotic agents
CPT/HCPCS: 99211

== ENCOUNTER 2022-09-08 06:48 | Day surgery (SDC) | payer MEDICARE ==
[~2022-09-08 06:48] MED LIST changes: -LACTATED RINGERS 1,000 ML IV SCH
[2022-09-08] MEDS: LACTATED RINGERS 1,000 ML IV SCH ×2 (07:16→07:28)
[2022-09-08 07:18] VITALS: TEMP 98
[2022-09-08] MEDS ORDERED: ROPIVACAINE 5 MG/ML 20 ML AMPULE ONE (08:00)
[2022-09-08] MEDS ORDERED: MIDAZOLAM 2 MG/2 ML VIAL ONE (08:00)
[2022-09-08] MEDS ORDERED: methylPREDNISolone ACETATE 40 MG/ML 1 ML VIAL ONE (08:00)
[2022-09-08] MEDS ORDERED: fentaNYL (PF) 50 MCG/ML 2 ML AMP ONE (08:00)
--- NOTE | 2022-09-08 08:25 | P.PCN ---
Date of Procedure: 09/08/22 Procedure(s) Performed: PREOPERATIVE DIAGNOSIS: 1-Lumbar Spondylosis with Facet Arthropathy without myelopathy. 2- Lumber degenerative disc disease. POSTOPERATIVE DIAGNOSIS: 1- Lumbar Spondylosis with Facet Arthropathy without myelopathy. 2- Lumber degenerative disc disease. PROCEDURES : Left Radiofrequency thermocoagulation, L1, L2 , and L3 medial branch, with fluoroscopic guidance (fluoroscopy images available in the radiology department) ( to denervate the facet joint at left L2-3 ,and L3-4 levels ). ANESTHESIA: Monitored anesthesia care as per anesthesia department . EBL: Minimal PROCEDURE INDICATION: The patient with low back pain secondary to lumbar facet arthropathy who had more than 50% relief of her pain with previous diagnostic lumbar medial branch block with bupivacaine. PROCEDURE DESCRIPTION / TECHNIQUE: The patient was seen and identified in the preoperative area. Risks, benefits, complications, including but not limited to risk of infection ,bleeding , allergic reactions to the medications and no complete pain releife , and alternatives were discussed with the patient, the patient agreed to proceed with the procedure and signed the consent. IV was started. Vital signs remained stable throughout the procedure. Patient was taken to the OR and time out was completed. The patient was placed in the prone position on the procedure table. The lumber area was prepped and draped in the usual sterile fashion. . Vital signs were closely monitored during the procedure .IV sedation was used during the procedure to decrease patients anxiety. Using AP and then oblique fluoroscopy, the ``eye of the Bernardo dog corresponding to the connection between the superior and transverse articular processes of left L1, L2, L3 were identified, marked, and localized with 1% lidocaine. Subsequently, a [id number] radiofrequency cannula with a 10-mm active tip was advanced guided by fluoroscopy to each of the``eyes of the Bernardo dog at left L1, L2, and L3. Each site then underwent sensory testing at 50 Hz a nd 0 to 1 volt and motor testing at 2.5 Hz and 0 to 3 volt with local stimulation, but no radicular symptoms down the legs. Thereafter each sites underwent radiofrequency thermocoagulation at 80 degrees celsius for 90 seconds after injecting 0.5 ml of PF Ropivacaine 1ml, then after the thermocoagulation done , 1 ml of the block solution containing Depo-Medrol 20 mg and 3 ml of Ropivacaine 0.5% was injected at the right L1,L2,L3 , levels after negative aspiration of CSF and blood and with no paresthesias. Cannulas were retracted while injecting lidocaine 1% until the needle is out. At the end of the procedure, the skin was cleansed and bandages were applied. COMPLICATIONS: No acute complications. DISPOSITION / PLANS: The patient was placed in a supine position and transferred to the recovery area in a stable condition for observation and was discharged from the recovery room after meeting discharge criteria. Home discharge instructions given to the patient by the staff. The patient was reexamined prior to discharge. The patient will schedule a follow up in the clinic in 2-4 weeks.
[2022-09-08 08:29] VITALS: RESP 16
--- NOTE | 2022-09-08 08:34 | FL ---
EXAMINATION TYPE: FL guided pain mgmt statistic DATE OF EXAM: 09/08/2022 CLINICAL HISTORY: Low back pain. TECHNIQUE: Fluoroscopy. COMPARISON: None. FINDINGS: Fluoroscopic guidance was provided during pain relief procedure performed by Dr. Cope . A total of 15 seconds of fluoroscopic time was utilized during the procedure and four spot images are acquired. Images acquired shows needle localization at multiple levels in the lumbar spine. IMPRESSION: As Above. Total DAP: .056
[2022-09-08 08:49] VITALS: BP 143/79; PULSE 82
== END 2022-09-08 09:12 | disposition home or self-care (01) ==
LOC: ORPAIN 06:48
PROVIDERS: ATTEND Specialist
DX: M51.36 Other intervertebral disc degeneration, lumbar region (principal); M47.816 Spondylosis without myelopathy or radiculopathy, lumbar region; I10 Essential (primary) hypertension; F41.9 Anxiety disorder, unspecified; F32.A Depression, unspecified; K21.9 Gastro-esophageal reflux disease without esophagitis; Z90.710 Acquired absence of both cervix and uterus; Z90.89 Acquired absence of other organs; Z90.49 Acquired absence of other specified parts of digestive tract; Z98.890 Other specified postprocedural states; Z88.8 Allergy status to other drugs, medicaments and biological substances; Z79.899 Other long term (current) drug therapy
CPT/HCPCS: 64635; 64636; J2250; J1030; J3010; J2795

== ENCOUNTER → 2022-10-05 | Outpatient (CLI) | payer MEDICARE ==
[2022-10-05 09:57] VITALS: BP 136/72; PULSE 75; RESP 76; TEMP 97.9
--- NOTE | 2022-10-05 15:25 | P.PAINPG ---
PQRS Measure Charge Sheet Comment: A 72 yr old female with a history of severe and chronic LBP secondary to lumbar DDD and spondylosis with facet arthropathy without myelopathy presents today for evaluation s/p L RFA L2-L3, L3-L4. Pt states she experienced 100% pain relief s/p procedure. Pain level is provoked at 0 /10 in intensity. Pain is alleviated with injections. Interventional pain procedures completed include L RFA L2-S1 Patient is currently on DENIES Patient denies any side effects of the medication(s), denies excessive drowsine ss or sleepiness, denies suicidal ideation and reports that the current pain medication is helping to control the pain and improve activities of daily living. Patient denies any motor or sensory deficits. Patient denies any fever or night sweats, denies any change in the bowel movements or urination. Physical Examination: -Constitutional: Cooperative. Not in acute distress . - Neurologic: Cranial nerve II to XII intact. No focal neurological deficits. - Psychatric: Alert & oriented x 3. Matching mood & appropriate affect. Judgment and insight intact. - Musculoskeletal: Cervical spine: Muscle bulk/ tone/ strength in the bilateral upper extremities normal Vertebral body tenderness to palpation over Spurling test positive Distraction test positive Facet loading test positive TTP Thoracic spine Muscle bulk / tone/ strength in the bilateral paraspinal muscles normal Vertebral body tender to palpation over Facet loading test positive TTP Lumbar spine: Motor bulk/ tone/ strength lower extremities , thigh and legs : 5/5 Deep tendon reflexes : Normal Knee Jerk. Normal Ankle Jerk . Vertebral body tenderness to palpation over Thorpe Test positive Lumbar Facet Loading Test positive Straight Leg Raise: positive at 30 degrees right side/ left side Gaenslen's Test positive Sacral spine : Severe tenderness over the Sacroiliac joint: right side / left side Range of motion: Flexion of the lumbar spine <60 degrees Range of motion: Extension of the lumbar spine <20 degrees Gaenslen's Test positive right side / left side Corey test: positive right side / left side Thigh Thrust Test positive right side / left side Sacral Thrust Test positive right side / left side Assessment and plan: Chronic LBP secondary to lumbar DDD, spondylosis with facet arthropathy without myelopathy Pt exhibited sufficient and substantial pain relief and may follow up on an as needed basis. I have spent less than 30 minutes on patient care today. Dr Cope was available by phone for the evaluation of this patient. The time was used to review the medical records including relevant urine studies and Prescription history (MAPs), review of the available imaging, evaluation and examination of the patient, coordination of care with the medical staff and if applicable referring physicians, as well as creation of the medical record PQRS Narrative: Smoking Status Never smoker Hx Alcohol Use (MH) Yes: OCCASIONAL Home Medications: Ambulatory Orders Pantoprazole Sodium [Protonix] 40 mg PO DAILY 04/03/17 Aspirin [[place] Aspirin EC] 81 mg PO DAILY 04/20/18 Escitalopram [Lexapro] 20 mg PO HS 11/09/20 Meloxicam [Mobic] 7.5 mg PO DAILY PRN 11/09/20 Econazole 1% Cream [Spectazole] 1 applic TOPICAL DAILY PRN 02/04/21 Estrogens, Conjugated Cream [Premarin Vaginal Cream] 1 applicator VAGINAL DIRECTED 02/04/21 Fexofenadine HCl 180 mg PO DAILY PRN 02/04/21 Cholecalciferol [Vitamin D3 (25 Mcg = 1000 Iu)] 50 mcg PO DAILY 03/07/21 busPIRone HCL [Buspirone HCl] 5 mg PO TID PRN 05/03/22 Ibuprofen [Advil] 200 mg PO Q8HR PRN 07/14/22 Controlled Substance Measures - Controlled Substance Measures Is patient prescribed a controlled substance at discharge?: No
== END ==
LOC: PNWHC3 09:04
PROVIDERS: ATTEND Specialist
DX: M51.36 Other intervertebral disc degeneration, lumbar region (principal); M47.816 Spondylosis without myelopathy or radiculopathy, lumbar region; G89.29 Other chronic pain; M53.3 Sacrococcygeal disorders, not elsewhere classified; Z79.82 Long term (current) use of aspirin; Z91.048 Other nonmedicinal substance allergy status; Z88.1 Allergy status to other antibiotic agents
CPT/HCPCS: 99211

== ENCOUNTER → 2023-02-28 | Outpatient (CLI) | payer MEDICARE ==
[2023-02-28 11:18] VITALS: BP 148/85; PULSE 72; RESP 16; TEMP 97.8
--- NOTE | 2023-02-28 15:04 | P.PAINPG ---
PQRS Measure Charge Sheet Comment: A 73 yr old female with a history of severe and chronic LBP secondary to lumbar DDD and spondylosis with facet arthropathy without myelopathy presents today for evaluation. Pain level is provoked at 6/10 in intensity, localized in the lumbar spine, predominantly axial, sharp in character w occasional radiation of pain towards the buttocks. Pain is alleviated with injections, heat, ice, medications, topical, repositioning and rest. Oswestry axial pain score of 11. Interventional pain procedures completed include FLORENTINO L5-S1 x1, BL RFA L2-S1 (Dec 2020, Mar 2022, August 2022) Patient is currently on Ibu, BioFreeze gel Patient denies any side effects of the medication(s), denies excessive drowsiness or sleepiness, denies suicidal ideation and reports that the current pain medication is helping to control the pain and improve activities of daily living. Patient denies any motor or sensory deficits. Patient denies any fever or night sweats, denies any change in the bowel movements or urination. Physical Examination: -Constitutional: Cooperative. Not in acute distress . - Neurologic: Cranial nerve II to XII intact. No focal neurological deficits. - Psychatric: Alert & oriented x 3. Matching mood & appropriate affect. Judgment and insight intact. - Musculoskeletal: Cervical spine: Muscle bulk/ tone/ strength in the bilateral upper extremities normal Vertebral body tenderness to palpation over Spurling test positive Distraction test positive Facet loading test positive TTP Thoracic spine Muscle bulk / tone/ strength in the bilateral paraspinal muscles normal Vertebral body tender to palpation over Facet loading test positive TTP Lumbar spine: Motor bulk/ tone/ strength lower extremities , thigh and legs : 5/5 Deep tendon reflexes : Normal Knee Jerk. Normal Ankle Jerk . Vertebral body tenderness to palpation over L5 Thorpe Test positive Lumbar Facet Loading Test positive Straight Leg Raise: positive at 30 degrees right side/ left side Gaenslen's Test positive Sacral spine : Severe tenderness over the Sacroiliac joint: right side / left side Range of motion: Flexion of the lumbar spine <60 degrees Range of motion: Extension of the lumbar spine <20 degrees Gaenslen's Test positive right side / left side Corey test: positive right side / left side Thigh Thrust Test positive right side / left side Sacral Thrust Test positive right side / left side Assessment and plan: Chronic LBP secondary to lumbar DDD, spondylosis with facet arthropathy without myelopathy Recommendation of FLORENTINO R paramedian L5-S1 #1. May need a series of injections for optimal pain relief. Risks, benefits of procedure discussed and pt verbalized understanding. Protocol for discontinuation/ continuation of medications serafin procedure discussed. All questions answered. I have spent less than 30 minutes on patient care today. Dr Cope was available by phone for the evaluation of this patient. The time was used to review the medical records including relevant urine studies and Prescription history (MAPs), review of the available imaging, evaluation and examination of the patient, coordination of care with the medical staff and if applicable referring physicians, as well as creation of the medical record PQRS Narrative: Smoking Status Never smoker Hx Alcohol Use (MH) Yes: OCCASIONAL Home Medications: Ambulatory Orders Pantoprazole Sodium [Protonix] 40 mg PO DAILY 04/03/17 Aspirin [[place] Aspirin EC] 81 mg PO DAILY 04/20/18 Escitalopram [Lexapro] 20 mg PO HS 11/09/20 Meloxicam [Mobic] 7.5 mg PO DAILY PRN 11/09/20 Econazole 1% Cream [Spectazole] 1 applic TOPICAL DAILY PRN 02/04/21 Estrogens, Conjugated Cream [Premarin Vaginal Cream] 1 applicator VAGINAL DIRECTED 02/04/21 Fexofenadine HCl 180 mg PO DAILY PRN 02/04/21 Cholecalciferol [Vitamin D3 (25 Mcg = 1000 Iu)] 50 mcg PO DAILY 03/07/21 busPIRone HCL [Buspirone HCl] 5 mg PO TID PRN 05/03/22 Ibuprofen [Advil] 200 mg PO Q8HR PRN 07/14/22 Controlled Substance Measures - Controlled Substance Measures Is patient prescribed a controlled substance at discharge?: Yes When asked, does pt state using other controlled substances?: No If prescribed controlled substance>3 days was MAPS reviewed?: Prescribed <3 Days
== END ==
LOC: PNWHC3 10:33
PROVIDERS: ATTEND Specialist
DX: M51.36 Other intervertebral disc degeneration, lumbar region (principal); M47.816 Spondylosis without myelopathy or radiculopathy, lumbar region; G89.29 Other chronic pain; Z79.82 Long term (current) use of aspirin; Z91.048 Other nonmedicinal substance allergy status; Z88.1 Allergy status to other antibiotic agents
CPT/HCPCS: 99211

== ENCOUNTER 2023-03-20 09:50 | Day surgery (SDC) | payer MEDICARE ==
[2023-03-15 16:35] VITALS: BMI 28.7
[~2023-03-20 09:50] MED LIST changes: +LACTATED RINGERS 1,000 ML IV SCH; -LIDOCAINE 1% (10MG/ML) FOR IV START INTRADERMA PRN
[2023-03-20] MEDS ORDERED: methylPREDNISolone ACETATE 40 MG/ML 1 ML VIAL ONE (10:35)
[2023-03-20] MEDS ORDERED: IOPAMIDOL M200 10 ML VIAL ONE (10:35)
[2023-03-20 10:40] VITALS: TEMP 97.7
--- NOTE | 2023-03-20 10:42 | P.PCN ---
Date of Procedure: 03/20/23 Operative Findings: PREOPERATIVE DIAGNOSIS: lumbar radiculopathy POSTOPERATIVE DIAGNOSIS: Lumbar radiculopathy PROCEDURE 1. Lumbar epidural steroid injection under fluoroscopic guidance at the L5/S1 level. 2. Lumbar epidurogram. Imaging: Fluoroscopy was used, images where saved to the medical record ANESTHESIA: Local only EBL: Minimal PROCEDURE INDICATION: The patient with low back pain and radiculitis symptoms unresponsive to conservative treatment. Fluoroscopy was used to optimize visualization of the needle placement and to maximize safety. PROCEDURE DESCRIPTION / TECHNIQUE: The patient was seen and identified in the preoperative area. Risks, benefits, complications including but not limited to infections, bleeding, allergic reaction to medications, nerve damage and incomplete pain relief, as well as alternatives to the procedure were discussed with the patient. The patient agreed to proceed with the procedure and signed the consent. IV was started if indicated above, and vital signs were stable. Patient was taken to the OR and time out was completed. The patient was placed in the prone position on procedure table and a pillow was placed under the abdomen to reduce lumbar lordosis. The lumbosacral area was prepped and draped in the usual sterile fashion. Vitals were closely monitored during the procedure. Using anterior-posterior fluoroscopy, the L5/S1 interlaminar space was identified and the skin over this site was marked and then infiltrated with 1% lidocaine subcutaneously. Subsequently, a 20-gauge Tuohy epidural needle was inserted and advanced toward the epidural space using the Loss of resistance technique and guided by AP and lateral fluoroscopy. The correct needle position in the epidural space was verified with the injection of 1 mL of Omnipaque 180 contrast to observe an acceptable epidurogram, after negative aspiration for blood and CSF and in the absence of paresthesias. Again after negative aspiration, a 3 ml mixture containing 40mg of depomedrol and 2 ml of preservative free Normal Saline was injected and a washout of epidurogram was seen. Needle was withdrawn intact, skin was cleansed, and bandages were applied. COMPLICATIONS: None DISPOSITION / PLANS: The patient was placed in a supine position and transferred to the recovery area in a stable condition for observation. There was no evidence of lower extremity motor or sensory deficit after the procedure. Patient was discharged from the recovery room after meeting discharge criteria. Home discharge instructions were given to the patient by the staff. The patient was reexamined prior to discharge. The patient will follow up as directed.
--- NOTE | 2023-03-20 11:04 | FL ---
EXAMINATION TYPE: FL guided pain mgmt statistic DATE OF EXAM: 03/20/2023 HISTORY: Fluoroscopy time Total dose area product (DAP) in uGy*m?, mGy*cm? (or similar): 0.13635 IMPRESSION: 1. Fluoroscopy time.
[2023-03-20 11:06] VITALS: BP 157/84; PULSE 71; RESP 16
== END 2023-03-20 11:06 | disposition home or self-care (01) ==
LOC: ORPAIN 09:50
PROVIDERS: ATTEND Hospitalist
DX: M54.16 Radiculopathy, lumbar region (principal); Z88.1 Allergy status to other antibiotic agents; Z79.82 Long term (current) use of aspirin
CPT/HCPCS: 62323; J1030; Q9966

== ENCOUNTER → 2023-04-19 | Outpatient (CLI) | payer MEDICARE ==
[2023-04-19 09:42] VITALS: BP 135/74; PULSE 95; RESP 16; TEMP 98.4
--- NOTE | 2023-04-19 14:50 | P.PAINPG ---
PQRS Measure Charge Sheet Comment: A 73 yr old female with a history of severe and chronic LBP secondary to lumbar DDD and spondylosis with facet arthropathy without myelopathy presents today for evaluation s/p FLORENTINO L5-S1 #2. Pt states she experienced 100 % pain relief x 2-3 wks s/p procedure. Pain level is provoked at 5/10 in intensity, localized in the lumbar spine, predominantly axial, sharp in character w occasional radiation of pain towards the buttocks. Pain is alleviated with injections, heat, ice, medications, topical, repositioning and rest. Oswestry axial pain score of 10. Interventional pain procedures completed include FLORENTINO L5-S1 x2, BL RFA L2-S1 (Dec 2020, Mar 2022, August 2022) Patient is currently on Ibu, BioFreeze gel Patient denies any side effects of the medication(s), denies excessive drowsiness or sleepiness, denies suicidal ideation and reports that the current pain medication is helping to control the pain and improve activities of daily living. Patient denies any motor or sensory deficits. Patient denies any fever or night sweats, denies any change in the bowel movements or urination. Physical Examination: -Constitutional: Cooperative. Not in acute distress . - Neurologic: Cranial nerve II to XII intact. No focal neurological deficits. - Psychatric: Alert & oriented x 3. Matching mood & appropriate affect. Judgment and insight intact. - Musculoskeletal: Cervical spine: Muscle bulk/ tone/ strength in the bilateral upper extremities normal Vertebral body tenderness to palpation over Spurling test positive Distraction test positive Facet loading test positive TTP Thoracic spine Muscle bulk / tone/ strength in the bilateral paraspinal muscles normal Vertebral body tender to palpation over Facet loading test positive TTP Lumbar spine: Motor bulk/ tone/ strength lower extremities , thigh and legs : 5/5 Deep tendon reflexes : Normal Knee Jerk. Normal Ankle Jerk . Vertebral body tenderness to palpation over L5 Thorpe Test positive Lumbar Facet Loading Test positive Straight Leg Raise: positive at 30 degrees right side/ left side Gaenslen's Test positive Sacral spine : Severe tenderness over the Sacroiliac joint: right side / left side Range of motion: Flexion of the lumbar spine <60 degrees Range of motion: Extension of the lumbar spine <20 degrees Gaenslen's Test positive right side / left side Corey test: positive right side / left side Thigh Thrust Test positive right side / left side Sacral Thrust Test positive right side / left side Assessment and plan: Chronic LBP secondary to lumbar DDD, spondylosis with facet arthropathy without myelopathy Will follow up w Dr Hawk to explore additional treatment options and may RTC on an as needed basis. All questions answered. I have spent less than 30 minutes on patient care today. Dr Cope was available by phone for the evaluation of this patient. The time was used to review the medical records including relevant urine studies and Prescription history (MAPs), review of the available imaging, evaluation and examination of the patient, coordination of care with the medical staff and if applicable referring physicians, as well as creation of the medical record PQRS Narrative: Smoking Status Never smoker Hx Alcohol Use (MH) Yes: OCCASIONAL Home Medications: Ambulatory Orders Pantoprazole Sodium [Protonix] 40 mg PO DAILY 04/03/17 Aspirin [[place] Aspirin EC] 81 mg PO DAILY 04/20/18 Escitalopram [Lexapro] 20 mg PO HS 11/09/20 Estrogens, Conjugated Cream [Premarin Vaginal Cream] 1 applicator VAGINAL DIRECTED 02/04/21 Fexofenadine HCl 180 mg PO DAILY PRN 02/04/21 Cholecalciferol [Vitamin D3 (25 Mcg = 1000 Iu)] 50 mcg PO DAILY 03/07/21 busPIRone HCL [Buspirone HCl] 5 mg PO TID PRN 05/03/22 Ezetimibe [Zetia] 10 mg PO HS 03/15/23 Ibuprofen [Motrin] 800 mg PO DIRECTED PRN 03/15/23 diazePAM [Valium] 5 mg PO DIRECTED PRN 03/15/23 Controlled Substance Measures - Controlled Substance Measures Is patient prescribed a controlled substance at discharge?: No
== END ==
LOC: PNWHC3 09:16
PROVIDERS: ATTEND Specialist
DX: M51.36 Other intervertebral disc degeneration, lumbar region (principal); M54.50 Low back pain, unspecified; M47.816 Spondylosis without myelopathy or radiculopathy, lumbar region; Z91.09 Other allergy status, other than to drugs and biological substances; Z91.048 Other nonmedicinal substance allergy status; Z88.1 Allergy status to other antibiotic agents; Z79.82 Long term (current) use of aspirin
CPT/HCPCS: 99211

== ENCOUNTER → 2023-08-31 | Outpatient (CLI) | payer MEDICARE ==
--- NOTE | 2023-09-04 05:27 | MR ---
EXAMINATION TYPE: MR brain and iac wo/w con DATE OF EXAM: 08/31/2023 COMPARISON: CT brain January 18, 2020. MRI brain April 30, 2013 HISTORY: Sinus pressure and pain, loss of smell, history of arachnoid cyst. TECHNIQUE: Multiplanar, multisequence images of the brain and brainstem along with internal auditory canals are all performed without and with IV contrast, utilizing 7 mL intravenous Gadavist . FINDINGS: Diffusion weighted images demonstrate no evidence of a recent infarct or other diffusion ab normality. The ventricular system and cisternal spaces are normal in size and appearance. The brain volume is age appropriate. Occasional tiny focus of T2 hyperintensity throughout the white matter bi laterally is redemonstrated. Approximately 5-10 scattered tiny lesions are seen. There is persistent focal CSF prominence left frontal temporal junction measuring 2.7 x 4.6 cm AP diameter axial image 18 x 4.5 cm craniocaudal dimension coronal image 28 consistent with arachnoid cyst with local mass effe ct. Midline structures redemonstrate normal morphology. The craniocervical junction remains within tabby l limits. Post contrast images demonstrate no abnormal enhancement. The dural venous sinuses appear patent. Bilateral aphakia is now present. New moderate dependent fluid in the right sphenoid sinus. No suspicious opacification of the mastoid air cells bilaterally. The vestibular cochlear complex is symmetric and felt within normal limits. No abnormal enhancing cerebellopontine angle mass is identif ied bilaterally. IMPRESSION: 1. No suspicious new finding on the MRI IAC to account for patient's symptoms. 2. Persistent around 5.0 cm left-sided arachnoid cyst with local mass effect at the frontotemporal ju nction stable from prior MRI 2017. 3. Right sphenoid sinus disease redemonstrated. 4. Mild nonspecific white matter changes felt to reflect product of of chronic small vessel ischemia again seen and stable.
== END | disposition home or self-care (01) ==
LOC: RADMRIMAIN 14:13
PROVIDERS: ATTEND Otolaryngology
DX: I67.82 Cerebral ischemia (principal); G93.0 Cerebral cysts; R43.0 Anosmia
CPT/HCPCS: 70553; A9585

== ENCOUNTER → 2023-09-20 | Outpatient (CLI) | payer MEDICARE ==
[2023-09-20 09:33] VITALS: BP 144/85; PULSE 74; RESP 16; TEMP 96.9
--- NOTE | 2023-09-20 13:27 | P.PAINPG ---
PQRS Measure Charge Sheet Comment: A 73 yr old female as a referral from Dr Shannon with a history of severe and chronic LBP secondary to lumbar DDD and spondylosis with facet arthropathy without myelopathy presents today for evaluation of anosmia. 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 She has had sinus surgery, septoplasty w reconstruction and tonsillectomy (1967) which she states reduced her ability to swallow. Anosmia has no provocative or palliative factors. Interventional pain procedures completed include FLORENTINO L5-S1 x2 (Apr 2023), BL RFA L2-S1 (Dec 2020, Mar 2022, August 2022) Patient is currently on Ibu, BioFreeze gel Patient denies any side effects of the medication(s), denies excessive drowsiness or sleepiness, denies suicidal ideation and reports that the current pain medication is helping to control the pain and improve activities of daily living. Patient denies any motor or sensory deficits. Patient denies any fever or night sweats, denies any change in the bowel movements or urination. Physical Examination: -Constitutional: Cooperative. Not in acute distress . - Neurologic: Cranial nerve II to XII intact. No focal neurological deficits. - Psychatric: Alert & oriented x 3. Matching mood & appropriate affect. Judgment and insight intact. - Musculoskeletal: Cervical spine: Muscle bulk/ tone/ strength in the bilateral upper extremities normal Vertebral body tenderness to palpation over Spurling test positive Distraction test positive Facet loading test positive TTP Thoracic spine Muscle bulk / tone/ strength in the bilateral paraspinal muscles normal Vertebral body tender to palpation over Facet loading test positive TTP Lumbar spine: Motor bulk/ tone/ strength lower extremities , thigh and legs : 5/5 Deep tendon reflexes : Normal Knee Jerk. Normal Ankle Jerk . Vertebral body tenderness to palpation over L5 Thorep Test positive Lumbar Facet Loading Test positive Straight Leg Raise: positive at 30 degrees right side/ left side Gaenslen's Test positive Sacral spine : Severe tenderness over the Sacroiliac joint: right side / left side Range of motion: Flexion of the lumbar spine <60 degrees Range of motion: Extension of the lumbar spine <20 degrees Gaenslen's Test positive right side / left side Corey test: positive right side / left side Thigh Thrust Test positive right side / left side Sacral Thrust Test positive right side / left side Assessment and plan: Chronic LBP secondary to lumbar DDD, spondylosis with facet arthropathy without myelopathy, Anosmia Recommendation of Stellate Ganglion Nerve Block #1. May need a series of injections for optimal relief. Risks, benefits of procedure discussed and pt verbalized understanding. Protocol for discontinuation/ continuation of medications serafin procedure discussed. Minimal anesthesia including Fentanyl and Versed if clinically indicated. All questions answered. I have spent less than 30 minutes on patient care today. Dr Cope was available by phone for the evaluation of this patient. The time was used to review the medical records including relevant urine studies and Prescription history (MAPs), review of the available imaging, evaluation and examination of the patient, coordination of care with the medical staff and if applicable referring physicians, as well as creation of the medical record PQRS Narrative: Smoking Status Never smoker Hx Alcohol Use (MH) Yes: OCCASIONAL Home Medications: Ambulatory Orders Pantoprazole Sodium [Protonix] 40 mg PO DAILY 04/03/17 Aspirin [[place] Aspirin EC] 81 mg PO DAILY 04/20/18 Escitalopram [Lexapro] 20 mg PO HS 11/09/20 Estrogens, Conjugated Cream [Premarin Vaginal Cream] 1 applicator VAGINAL DIRECTED 02/04/21 Fexofenadine HCl 180 mg PO DAILY PRN 02/04/21 Cholecalciferol [Vitamin D3 (25 Mcg = 1000 Iu)] 50 mcg PO DAILY 03/07/21 busPIRone HCL [Buspirone HCl] 5 mg PO TID PRN 05/03/22 Ezetimibe [Zetia] 10 mg PO HS 03/15/23 Ibuprofen [Motrin] 800 mg PO DIRECTED PRN 03/15/23 diazePAM [Valium] 5 mg PO DIRECTED PRN 03/15/23 Controlled Substance Measures - Controlled Substance Measures Is patient prescribed a controlled substance at discharge?: No
== END ==
LOC: PNWHC3 09:06
PROVIDERS: ATTEND Specialist
DX: R43.0 Anosmia (principal); M51.36 Other intervertebral disc degeneration, lumbar region; M47.816 Spondylosis without myelopathy or radiculopathy, lumbar region; Z91.09 Other allergy status, other than to drugs and biological substances; Z91.048 Other nonmedicinal substance allergy status; Z88.1 Allergy status to other antibiotic agents
CPT/HCPCS: 99211

== ENCOUNTER → 2024-10-13 | Outpatient (CLI) | payer MEDICARE ==
--- NOTE | 2024-10-13 21:03 | MR ---
EXAMINATION TYPE: MR lumbar spine wo con DATE OF EXAM: 10/13/2024 8:32 PM COMPARISON: Plain film. CLINICAL INDICATION: Female, 74 years old with history of M54.50, M47.26; PHH, low back pain that rad iates into right hip and down leg. TECHNIQUE: Multi planar, multi sequence imaging was performed utilizing: T1-weighted, T2-weighted, a nd turbo inversion recovery imaging of the lumbar spine. IV Contrast: mL (None, if empty) FINDINGS: Alignment: The lumbar vertebral bodies have preserved heights and alignment. Cord: The conus medullaris and the distal spinal cord appear unremarkable with regards to their signa l intensity and morphology. Bones/Discs: Moderate degeneration changes throughout the spine with osteophyte formation and facet j oint arthropathy. Intervertebral disc signal is maintained. Reactive adjoining endplate edema at L5-S 1. Inferior endplate Schmorl's nodes noted at multiple levels and most pronounced at T12, L1 and L2. T12-L1: Disc bulge and facet joint arthropathy without significant spinal canal stenosis and mild viviane ateral neural foraminal stenosis. L1-L2: Disc bulge and facet joint arthropathy without significant spinal canal stenosis and mild bila teral neural foraminal stenosis. L2-L3: Disc bulge and facet joint arthropathy without significant spinal canal stenosis and mild bila teral neural foraminal stenosis. L3-L4: Disc bulge and facet joint arthropathy result in mild spinal canal and moderate bilateral neur al foraminal stenosis. L4-L5: Disc bulge and facet joint arthropathy without significant spinal canal stenosis and moderate to severe bilateral neural foraminal stenosis. Synovial complex cyst measuring up to 8 x 6 x 12 mm d isplacing the cauda equina leftward and displaces the exiting L5-S1 root in the thecal sac L5-S1: Disc bulge and facet joint arthropathy result in mild spinal canal and severe left and moderat e to severe right neural foraminal stenosis. No significant spinal canal or neural foraminal stenosis in the remainder of the visualized levels. Other findings: None. IMPRESSION: 1. L4-L5 right facet joint synovial complex cyst measuring 8 x 6 x 12 mm complex displacing the cau da equina leftward. This displaces the exiting L5-S1 nerve on the right. 2. No definitive evidence of disc herniation or significant spinal canal stenosis. 3. Multilevel disc degeneration with associated osteoarthritic changes. 4. Neural foraminal stenosis worse at L5-S1 with severe left and [id number] right, moderate severe bilateral L4-L5 and moderate bilateral L3-L4 [facility], , 10/13/2024 9:01 PM
== END | disposition home or self-care (01) ==
LOC: RADMRIMAIN 20:15
PROVIDERS: ATTEND Orthopaedic Surgery
DX: M48.061 Spinal stenosis, lumbar region without neurogenic claudication (principal); M51.16 Intervertebral disc disorders with radiculopathy, lumbar region; M47.26 Other spondylosis with radiculopathy, lumbar region
CPT/HCPCS: 72148

== ENCOUNTER → 2024-10-27 | Outpatient (CLI) | payer MEDICARE ==
--- NOTE | 2024-10-27 11:12 | CT ---
EXAMINATION TYPE: CT lumbar spine wo con DATE OF EXAM: 10/27/2024 8:51 AM COMPARISON: None. CLINICAL INDICATION: Female, 74 years old with history of M48.061,M47.26,M71.38 OTHER BURSAL CYST, OT HER SIT; PHH, lower back pain, bursal cyst TECHNIQUE: CT of the lumbar spine without contrast. Coronal and sagittal reconstructions performed. CT DLP: 879 mGycm, Automated exposure control for dose reduction was used. FINDINGS: Sigmoid diverticulosis. Fat density cortical lesion measuring 8 mm lateral left kidney suggesting a m L. Slight levoconvex curvature of the lumbar spine. Overall alignment is maintained. Advanced hypertrophic facet arthropathy is present throughout. Vertebral body heights are preserved. Small inferior endplate Schmorl's nodes T12, L1, and L2. Moderate degenerative disc disease throughout the lumbar spine, more moderate to severe at L4-L5 and L5-S1. 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 Bulging disc L4-L5 mildly narrows the spinal canal. By CT, no isis canal compromise is seen. On the right, changes result in moderate neuroforaminal stenoses throughout the lumbar spine. On the left, changes noted moderate neuroforaminal stenosis at L4-L5 and L5-S1. Mild elsewhere in the lumbar spine. IMPRESSION: 1. Moderate multilevel degenerative disc disease, more moderate to severe L4-L5 and L5-S1. 2. 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 3. Changes result in at least mild spinal canal stenosis at L4-L5. By CT, no isis canal compromise i s seen. 4. Moderate neuroforaminal stenoses throughout the right side of the lumbar spine and moderate on the left at L4-L5 and L5-S1. 5. No vertebral compression collapse or malalignment. [facility], , 10/27/2024 11:09 AM
== END | disposition home or self-care (01) ==
LOC: RADCTMAIN 08:30
PROVIDERS: ATTEND Orthopaedic Surgery
DX: M48.061 Spinal stenosis, lumbar region without neurogenic claudication (principal); M51.16 Intervertebral disc disorders with radiculopathy, lumbar region; M71.38 Other bursal cyst, other site; M47.26 Other spondylosis with radiculopathy, lumbar region
CPT/HCPCS: 72131